=== PATIENT | female | born 1960 | race Caucasian/White ===

== ENCOUNTER → 2024-06-08 15:32 | Outpatient (REF) | payer BC, SELFPAY | LOC: MRI 3T 15:32 | PROVIDERS: ATTENDING PHYSICIAN Family Medicine | DX: Q27.9 Congenital malformation of peripheral vascular system, unspecified (principal) | CPT/HCPCS: 70546; A9585 ==

== ENCOUNTER 2024-09-12 08:19 | Inpatient (IN) | payer BC, SELFPAY ==
[2024-09-12] VITALS (19 sets, daily range): BP systolic 86–105; BP diastolic 46–68; PULSE 83–102; BMI 24.0
[2024-09-12 00:42] LABS: % Basophils 0.7 % (0-2); % Eosinophils 1.4 % (0-6); % Immature Granulocytes 0.5 % (0-0.5); % Lymphocytes 34.4 % (20.5-51.1); % Monocytes 8.4 % (1.7-9.3); % Neutrophils 54.6 % (42.2-75.2); Absolute Eosinophils 0.1 10^3/uL (0-0.7); Absolute Lymphocytes 1.4 10^3/uL (1.2-3.4); Absolute Monocytes 0.4 10^3/uL (0.1-0.6); Absolute Neutrophils 2.3 10^3/uL (1.4-6.5); Hemoglobin 10.4 g/dL (12.0-16.0); Mean Corp Hgb Conc. 34.7 g/dL (33.0-37.0); Mean Corpuscular Hgb 31.5 pg (27.0-31.0); Mean Corpuscular Volume 90.9 fL (81.0-99.0); Mean Platelet Volume 11.6 fL (7.4-10.4); Nucleated Red Blood Cells % 0 %; Platelet Count 184 10^3/uL (130-400); Red Cell Dist. Width 14.1 % (11.5-14.5); White Blood Cell Count 4.2 10^3/uL (4.8-10.8)
[2024-09-12] MEDS: ZOFRAN 4 MG IV ×2 (00:48→14:57)
[2024-09-12] MEDS: NSS 1000 IV ×3 (00:49→05:23)
--- NOTE | 2024-09-12 00:50 | ED.GENMED ---
Addendum entered and electronically signed by Edmund Cummings DO 09/12/24 06:12:
Update, CT report noted reviewed with patient, message sent to hospitalist gynecology and gynecology blood pressure still soft, believe will be prudent to admit her to the hospital for supportive care, facilitated workup ultrasound has been ordered,
Original Note:
History of Present Illness
General
Chief Complaint: Fainting/Passed Out
Source: patient and spouse
Exam Limitations: none
Time Seen by Provider: 09/12/24 00:28
Nursing documentation reviewed up to this point in time: agreed with
History of Present Illness
History of Present Illness:
64-year-old female passed out at home she had a long few days her father was buried today, she had a few glasses of wine daily much, had some THC Gummies, felt like she had to go to the bathroom took some baking soda felt flushed and then passed
out, has some cramping in her abdomen, she feels constipated,
Past History
Past History
ED Past Medical History: None
ED Past Surgical History: Bowel resection (Diverticulitis) and Gynecological (Breast implants and implant removal)
Social History
Tobacco: Smoker
Alcohol: Occasional
Drug: None
Personal:
Living: with family
Employment: Employed
Review of Systems
Review of Systems
All Other Systems: Not applicable
Constitutional: Reports fatigue and sleep disturbance
EENT: Reports no symptoms
Respiratory: Denies cough or trouble breathing
Cardiac: Reports syncope; Denies chest pain
ABD/GI: Reports abdominal pain and nausea
: Reports no symptoms
Musculoskeletal: Reports no symptoms
Neurological: Reports dizzy and weakness
Psychiatric: Reports no symptoms
Phy Exam
Physical Exam
Physical Exam:
Physical Exam
General: 64 female nontoxic
Neck: Not tender
Heart: s1/s2 regular rate and rhythm, no murmur. equal radial pulses.
Lungs: no acute respiratory distress. clear bilaterally
Abdomen: Soft mild epigastric tender
Neuro: alert and oriented. no focal neurological deficits
Skin: no rash
Psychiatric: well kept. interactive and cooperative
Extremities: no edema.
Course
Orders/Labs/Results
Orders:
Orders
09/12/24 00:11
EKG [Electrocardiogram (*1)] Urgent
Reason for Study: Tachycardia
EKG- Treatment ONCE
09/12/24 00:17
Complete Blood Count/With Diff Urgent
09/12/24 00:41
0.9% Sodium Chloride 1000 ml [Nss] 1,000 ml IV BOLUS
Ondansetron Injectable [Zofran] 4 mg IV NOW STA
09/12/24 00:57
Comprehensive Metabolic Panel Urgent
Magnesium Urgent
Comment: ADD ON
Troponin I Urgent
09/12/24 01:25
Add On- LAB Urgent
Tests Added?: magnesium
09/12/24 01:26
Potassium Chloride [KCl] 40 meq PO NOW STA
09/12/24 01:42
Potassium Chloride 10% Elixir [KCl Elixir] 40 meq PO NOW STA
09/12/24 02:22
Magnesium Sulfate 1 G/D5w [Magnesium Sulfate] 1 gm in 100 ml IV NOW
09/12/24 02:24
0.9% Sodium Chloride 1000 ml [Nss] 1,000 ml IV BOLUS
09/12/24 05:06
CT Abd/pelvis W Iv Cont Urgent
Comment:
Reason For Exam: pain bloating
Abnormal Lab Results
09/12/24 09/12/24
00:17 00:57
WBC 4.2 L 10^3/uL
(4.8-10.8)
RBC 3.30 L 10^6/uL
(4.20-5.40)
Hgb 10.4 L g/dL
(12.0-16.0)
Hct 30.0 L %
(37.0-47.0)
MCH 31.5 H pg
(27.0-31.0)
MPV 11.6 H fL
(7.4-10.4)
Potassium 3.2 L mmol/L
(3.5-5.1)
Chloride 115 H mmol/L
(98-107)
Carbon Dioxide 17 L mmol/L
(22-30)
Creatinine 0.5 L mg/dL
(0.6-1.0)
Glucose 103 H mg/dl
(70-99)
Calcium 6.8 L* mg/dl
(8.4-10.2)
Magnesium 1.3 L mg/dl
(1.6-2.3)
Total Bilirubin < 0.1 L mg/dl
(0.2-1.3)
Alkaline Phosphatase 36 L U/L
(38-126)
Total Protein 4.2 L g/dl
(6.3-8.2)
Albumin 2.4 L g/dl
(3.5-5.0)
09/12/24 00:17
09/12/24 00:57
Vital Signs
Initial and Last Documented VS:
Initial Vital Signs
BP
94/68
09/12/24 00:10
Last Documented Vital Signs
Temp Pulse Resp BP Pulse Ox
97.7 F 81 19 90/56 96
09/12/24 00:11 09/12/24 04:00 09/12/24 04:00 09/12/24 04:00 09/12/24 04:00
MDM/Problems Addressed
Differential Diagnosis Includes:
Vasovagal dehydration electrolyte toxic metabolic doubt primary arrhythmia
MDM/Problems Addressed:
Syncope
*Pulse Oximetry
Patient hypoxic: no
*EKG
Interpreted by ED Provider?: Yes
Interpretation: normal
Comparison EKG: no comparison EKG present
Heart Rate: 78
Rate: normal
Rhythm: sinus
QRS Pattern: normal QRS
Ischemia: no ischemia
*Wide Area Network Administrator Interpretation
Rate: normal
Interpretation: normal
Heart Rate: 78
Rhythm: sinus
*Critical Care Note
Total Time (30-74mins, 75-104mins- exclusive of procedures): Not Applicable
Update Note
Update Note:
Update will hydrate, antiemetics serial abdominal exams adult education teacher check electrolytes
Update labs are noted calcium low as is her albumin potassium is low will check her magnesium
2:30 AM blood pressure still soft, will replete her magnesium, continue saline hydration follow closely
5 AM, patient was resting comfortably woke up having some abdominal bloating and pain states she had a bowel movement still having pain--- blood pressure still in the 90s continue hydration check CT scan
ED Attending Note
-
Portions of this chart may have been created with voice recognition software.� Occasional wrong word or��sound alike� substitutions may have occurred due to the inherent limitations of voice recognition software.
Discharge Plan
Departure
Prescriptions:
No Action
eszopiclone [Lunesta] 2 MG tablet
2 mg PO HSPRN PRN (Reason: sleep)
bromelains 500 MG tablet
500 mg PO BID
progesterone micronized 100 MG capsule
100 mg PO .EVERYOTHERNIGHT
cholecalciferol (vitamin D3) 10,000 UNIT tablet
10,000 unit PO DAILY
Bio-Identical Hormones
1 - 2 drp sublingual DAILY
Patient Comments:
E2-1/ E3-2
Digest Max
1 tab PO BID
Ultimate Marion
1 tab PO BID
Patient Comments:
80 billion
Vitamin C:
2,000 - 4,000 mg PO DAILY
hydrocodone-acetaminophen 1 TABLET tablet
1 - 2 tab PO Q4HPRN PRN (Reason: pain) Qty: 40 0RF
Saccharomyces boulardii [Florastor] 250 MG powder in packet
250 mg PO BID Qty: 28 0RF
amoxicillin 500 MG capsule
500 mg PO TID Qty: 29 0RF
Referrals:
Mercedes Joel MD [Family Provider] -
Interventions
Interventions:
*Risk Screen - Suicide Last Done: 09/12/24 00:11
*General Assessment Last Done: 09/12/24 00:11
*Neglect/Abuse Screening Last Done: 09/12/24 00:11
ED- Fall Risk Assessment Last Done: 09/12/24 00:11
*ED COVID-19 Vaccine History Last Done: 09/12/24 00:11
ED- Cardiac Assessment Last Done: 09/12/24 00:15
ED- Neurological Assessment Last Done: 09/12/24 00:15
Discharge Date and Time
Print Language: [place] ISLAND[place]
[2024-09-12 01:24] LABS: ALT (SGPT) 16 U/L (0-35); AST (SGOT) 20 U/L (14-36); Albumin 2.4 g/dl (3.5-5.0); Alkaline Phosphatase 36 U/L (38-126); Blood Urea Nitrogen 8 mg/dl (7-17); Calcium 6.8 mg/dl (8.4-10.2); Carbon Dioxide 17 mmol/L (22-30); Chloride 115 mmol/L (98-107); Estimated Creatinine Clearance 90 ml/min; Glucose 103 mg/dl (70-99); Potassium 3.2 mmol/L (3.5-5.1); Sodium 140 mmol/L (135-145); Total Bilirubin < 0.1 mg/dl (0.2-1.3); Total Protein 4.2 g/dl (6.3-8.2); eGFR > 60.00
[2024-09-12 01:34] LABS: Troponin I < 0.012 ng/ml
[2024-09-12 01:39] LABS: Magnesium 1.3 mg/dl (1.6-2.3)
[2024-09-12] MEDS: KCL ELIXIR 40 MEQ PO (01:47)
[2024-09-12] MEDS: MAGNESIUM SULFATE 100 IV ×2 (02:30→09:59)
[2024-09-12] MEDS: TORADOL 30 MG IV (05:43)
--- NOTE | 2024-09-12 06:10 | ED.GENMED ---
History of Present Illness
General
Chief Complaint: Fainting/Passed Out
Time Seen by Provider: 09/12/24 00:28
Past History
Past History
ED Past Medical History: None
ED Past Surgical History: Bowel resection (Diverticulitis) and Gynecological (Breast implants and implant removal)
Social History
Tobacco: Smoker
Alcohol: Occasional
Drug: None
Personal:
Living: with family
Employment: Employed
Course
Orders/Labs/Results
Orders:
Orders
09/12/24 00:11
EKG [Electrocardiogram (*1)] Urgent
Reason for Study: Tachycardia
EKG- Treatment ONCE
09/12/24 00:17
Complete Blood Count/With Diff Urgent
09/12/24 00:41
0.9% Sodium Chloride 1000 ml [Nss] 1,000 ml IV BOLUS
Ondansetron Injectable [Zofran] 4 mg IV NOW STA
09/12/24 00:57
Comprehensive Metabolic Panel Urgent
Magnesium Urgent
Comment: ADD ON
Troponin I Urgent
09/12/24 01:25
Add On- LAB Urgent
Tests Added?: magnesium
09/12/24 01:26
Potassium Chloride [KCl] 40 meq PO NOW STA
09/12/24 01:42
Potassium Chloride 10% Elixir [KCl Elixir] 40 meq PO NOW STA
09/12/24 02:22
Magnesium Sulfate 1 G/D5w [Magnesium Sulfate] 1 gm in 100 ml IV NOW
09/12/24 02:24
0.9% Sodium Chloride 1000 ml [Nss] 1,000 ml IV BOLUS
09/12/24 05:06
CT Abd/pelvis W Iv Cont Urgent
Comment:
Reason For Exam: pain bloating
09/12/24 05:08
0.9% Sodium Chloride 1000 ml [Nss] 1,000 ml IV BOLUS
09/12/24 05:41
Ketorolac [Toradol] 30 mg IV NOW STA
09/12/24 06:10
Pelvis (Non Obstetric) US [US Pelvis Only (non-obstetric)] Urgent
Comment:
Reason For Exam: mass
Abnormal Lab Results
09/12/24 09/12/24
00:17 00:57
WBC 4.2 L 10^3/uL
(4.8-10.8)
RBC 3.30 L 10^6/uL
(4.20-5.40)
Hgb 10.4 L g/dL
(12.0-16.0)
Hct 30.0 L %
(37.0-47.0)
MCH 31.5 H pg
(27.0-31.0)
MPV 11.6 H fL
(7.4-10.4)
Potassium 3.2 L mmol/L
(3.5-5.1)
Chloride 115 H mmol/L
(98-107)
Carbon Dioxide 17 L mmol/L
(22-30)
Creatinine 0.5 L mg/dL
(0.6-1.0)
Glucose 103 H mg/dl
(70-99)
Calcium 6.8 L* mg/dl
(8.4-10.2)
Magnesium 1.3 L mg/dl
(1.6-2.3)
Total Bilirubin < 0.1 L mg/dl
(0.2-1.3)
Alkaline Phosphatase 36 L U/L
(38-126)
Total Protein 4.2 L g/dl
(6.3-8.2)
Albumin 2.4 L g/dl
(3.5-5.0)
09/12/24 00:17
09/12/24 00:57
Vital Signs
Initial and Last Documented VS:
Initial Vital Signs
BP
94/68
09/12/24 00:10
Last Documented Vital Signs
Temp Pulse Resp BP Pulse Ox
97.7 F 78 15 90/46 98
09/12/24 00:11 09/12/24 06:00 09/12/24 06:00 09/12/24 06:00 09/12/24 06:00
Update Note
Update Note:
Update, CT report noted looks like a gynecologic malignancy pelvic ultrasound has been ordered, but she was sent to hospitalist gynecology and gynecology patient updated
ED Attending Note
-
Portions of this chart may have been created with voice recognition software.� Occasional wrong word or��sound alike� substitutions may have occurred due to the inherent limitations of voice recognition software.
Discharge Plan
Departure
Patient Disposition: Admit
Date of Disposition: 09/12/24
Time of Disposition: 06:11
Admit to: Med/Surg
Presentation/result/management discussed w/ accepting MD/DO: Hospitalist
Patient with high blood pressure during this ER visit?: No
Condition: Fair
Discharge Problem:
Abdominal pain, Syncope
Prescriptions:
No Action
eszopiclone [Lunesta] 2 MG tablet
2 mg PO HSPRN PRN (Reason: sleep)
bromelains 500 MG tablet
500 mg PO BID
progesterone micronized 100 MG capsule
100 mg PO .EVERYOTHERNIGHT
cholecalciferol (vitamin D3) 10,000 UNIT tablet
10,000 unit PO DAILY
Bio-Identical Hormones
1 - 2 drp sublingual DAILY
Patient Comments:
E2-1/ E3-2
Digest Max
1 tab PO BID
Ultimate Marion
1 tab PO BID
Patient Comments:
80 billion
Vitamin C:
2,000 - 4,000 mg PO DAILY
hydrocodone-acetaminophen 1 TABLET tablet
1 - 2 tab PO Q4HPRN PRN (Reason: pain) Qty: 40 0RF
Saccharomyces boulardii [Florastor] 250 MG powder in packet
250 mg PO BID Qty: 28 0RF
amoxicillin 500 MG capsule
500 mg PO TID Qty: 29 0RF
Referrals:
Mercedes Joel MD [Family Provider] -
Interventions
Interventions:
*Risk Screen - Suicide Last Done: 09/12/24 00:11
*General Assessment Last Done: 09/12/24 00:11
*Neglect/Abuse Screening Last Done: 09/12/24 00:11
ED- Fall Risk Assessment Last Done: 09/12/24 00:11
*ED COVID-19 Vaccine History Last Done: 09/12/24 00:11
ED- Cardiac Assessment Last Done: 09/12/24 00:15
ED- Neurological Assessment Last Done: 09/12/24 00:15
Discharge Date and Time
Print Language: KOREAN
--- NOTE | 2024-09-12 06:55 | HPS.HSE ---
Family Physician
-
Family Physician: Mercedes Joel MD
Chief Complaint
-
Abd Pain
History of Present Illness
Patient is a 64y F with PMH significant for diverticular disease who presents to ED complaining of abdominal pain and syncope. Patient states that she attended her father's yesterday. She had some alcohol and took THC later in the
evening. She went to bed last PM and woke with crampy lower abdominal pain. She had the urge to urinate / move her bowels. She stood to go to the bathroom and passed out / fell to the floor. She regained consciousness within moments. She denies
any significant injury / head trauma due to the fall. Patient had a single loose, non-bloody BM and noted some improvement in her abdominal discomfort. However, her pain then increased again and became quite severe. She had nausea but no emesis.
Pos diaphoresis / 'cold sweat'. With worsening pain, patient presented to the ED for further evaluation and treatment.
In the ED, she continues to complain of significant lower abdominal discomfort.
Patient states that she has been feeling fairly well of late. No recent specific or acute issues.
She admits to about 15 lbs weight loss since May without significant effort.
She has been taking bioidentical hormone replacement for some time and has recently been using 'Tamazight teas' from her chiropractor.
No other medications / prescriptions.
Medical History
Past Medical History
Past Medical History: Reports Other
Additional Past Medical History:
Diverticular Disease
GERD
Past Surgical History: Reports Other
Additional Past Surgical History:
Myomectomy (2004)
Hysterectomy / Left Salpingo-oophorectomy (2016) - [place]
Breast Implants / Removal
Sigmoidectomy
Social History
Tobacco: Former Smoker (Quit smoking several years ago.)
Alcohol: Daily (Recent increase in EtOH intake per patient. Daily intake over the past 2 months.)
Drug: Marijuana (THC gummies, etc.)
Family History
Family History: Other (Father: Lung Cancer, CAD Mother: CAD, A-Fib)
Allergies / Home Medications
Allergies reflects when Allergies were last updated in [facility].
Home Medications with original date entered in [facility]
Allergy/Medication List:
Patient states that she takes no Rx medications at present.
If medication reconciliation has not been performed, why?: Medication List N/A
Review of Systems
-
History Source: Patient
A 12 point ROS was completed and negative except as noted: Yes
Constitutional: Reports Fatigue; Denies Fever or Chills
EENT: Denies Sore Throat
Respiratory: Denies Cough or Trouble Breathing
Cardiac: Reports Syncope; Denies Chest Pain or Palpitations
Abdomen/GI: Reports Abdominal Pain, Nausea and Diarrhea; Denies Vomiting, Constipated, Bloody Stools or Black Stools
: Denies Dysuria, Frequency or Flank Pain
Musculoskeletal: Denies Joint Pain or Edema
Neurological: Reports Headache; Denies Dizzy
Psych: Denies Depression or Anxiety
Physical Exam
Vital Signs
Vital Signs
Temp Pulse Resp BP Pulse Ox
97.7 F 78 15 90/46 98
09/12/24 00:11 09/12/24 06:00 09/12/24 06:00 09/12/24 06:00 09/12/24 06:00
Physical Exam
General: Other (pale-appearing 64y F in mild distress due to pain.)
HEENT: Moist mucous membranes and PERRLA
Respiratory: Other (BS decreased at bases - otherwise clear.)
Cardiac: S1/S2 and Regular Rhythm; No Murmur
GI: Other (Abdomen firm inferiorly with pos tenderness and guarding. Bowel sounds are diminished throughout.)
Musculoskeletal: No Clubbing, No Cyanosis and No Edema
Neuro: AO x 3
Laboratory Results
-
09/12/24 00:17
09/12/24 00:57
Laboratory Results
Total Bilirubin < 0.1 mg/dl (0.2-1.3) L 09/12/24 00:57
AST 20 U/L (14-36) 09/12/24 00:57
ALT 16 U/L (0-35) 09/12/24 00:57
Alkaline Phosphatase 36 U/L (38-126) L 09/12/24 00:57
Troponin I < 0.012 ng/ml 09/12/24 00:57
Impression/Plan
-
A/P: Patient is a 64y F with PMH significant for diverticular disease and prior hysterectomy presents with syncopal episode and abdominal pain.
Abdominal Pain
- Admit for further evaluation and treatment.
- New abdominal pain since last PM with pallor and single episode of loose stools.
- No urinary complaints, vaginal discharge / bleeding, etc.
- CT done in the ED suggests uterine mass and R adnexal mass with abdominopelvic ascites.
- Patient is s/p hysterectomy in 2016 - ? primary R ovarian mass with extension.
- Pelvic US pending - follow-up results.
- RUBBER FLAP CUTTER/ Onc, IR and Med Onc consulted
- Supportive care including pain control / symptom management pending tissue diagnosis / further plan.
Syncope
Hypotension
- Suspect vasovagal syncopal event given abdominal symptoms coincident with episode.
- Monitor on telemetry for now. EKG with NSR in the ED.
- IVF support. Follow orthostatic signs, etc.
- Monitor for any new / recurrent symptoms.
- Check Echo.
Normocytic Anemia
- Unclear acuity / source. Prior Hgb = 13 - but this was > 1 year ago.
- Heme test stools, check iron studies, etc.
- Monitor for any evidence of overt blood loss.
- Follow-up repeat abdominal imaging/
- Follow H&H and transfuse if necessary.
Non-Gapped Metabolic Acidosis
Hypocalcemia
Hypokalemia
Hypomagnesemia
- IVF support / electrolyte replacement.
- Replete individual lytes as needed.
- Hypoalbuminemia suggests chronic / ongoing underlying disease state.
- Suspect alcohol use contributing significantly to electrolyte disturbances.
- Follow for improvement in labs / lytes.
- Hold outpatient supplements, herbal teas, etc.
Alcohol Use Disorder
- Recent increase in EtOH intake per patient with her father actively dying on Hospice care.
- MSAS protocol and treat any withdrawal symptoms with BZDs as needed.
- Thiamine / folate replacement.
- Address electrolyte abnormalities as noted above.
DVT Prophylaxis: SCDs
Code Status: Full
[2024-09-12] MEDS: DILAUDID 0.5 MG IV ×4 (07:34→20:40)
[2024-09-12] MEDS: LR 1000 IV ×2 (07:34→19:59)
--- NOTE | 2024-09-12 07:45 | EDRN ---
the pt was received from previous melt house supervisor RN, the pt is resting in stretcher in the lowest position, side rails up x2, call lai within reach, HOB elevated, no s/s of distress, VS WNL, the pt had c/o of severe abdominal pain, Dilaudid IV
administered per providers orders, the pt is on MSAS protocol, LR @ 125cc/hour was hung and is running, the pt denies needing anything at this time, will continue to monitor the pt closely
[2024-09-12 08:32] LABS: CA 125 5.5 U/mL (0-35); CEA 2.48 ng/ml
--- NOTE | 2024-09-12 09:56 | EDRN ---
orders were processed by this RN, pharmacy notified
--- NOTE | 2024-09-12 09:57 | EDRN ---
this RN notified the pt that she is to be NPO and it was explained to the pt as to what NPO means, the pt is agreeable
--- NOTE | 2024-09-12 10:07 | EDRN ---
Magnesium hung and running, labs drawn and sent
[2024-09-12 10:24] LABS: Ionized Calcium 1.08 mMOL/L (1.15-1.33)
[2024-09-12 10:30] LABS: Iron 52 ug/dl (37-170)
[2024-09-12 10:34] LABS: INR 1.22; PT 15.3 Sec (11.4-14.6)
[2024-09-12 10:35] LABS: APTT 23.7 Sec (23.4-35.0)
[2024-09-12 10:39] LABS: Percent Saturation 20 % (20-50); Total Iron Binding Capacity 260 ug/dl (265-497)
[2024-09-12 11:01] LABS: CA 125 < 5.5 U/mL (0-35)
[2024-09-12] MEDS: THIAMINE INJECTION 200 MG IV ×2 (11:47→20:40)
--- NOTE | 2024-09-12 12:22 | PTCARENOTE ---
pt admitted from ED awake and alert. reports abd pain & cramping. LCTA, NSR, +BS x4. cont b&b skin CDI +PP B/L, No edema, CB in reach.
--- NOTE | 2024-09-12 14:18 | W.PN.UPDATE ---
Update Note
Progress Note Update
Planner Intern Onc, IR consulted. Planning for biopsy and paracentesis. Pain control. Cont IVF - syncope 2/2 to abd symptoms. Can obtain CT head in setting of ovarin mass. F/u ECHO. Electrolyte repletion
--- NOTE | 2024-09-12 15:28 | CM ---
Reviewed chart, met with patient to obtain information for assessment. Patient stated that she lives in a condo with her spouse and 12 steps to enter. She was independent with her ADLs, personal care, dressing, and bathing. She drives and can get to
her appointments and do all of her own shopping.
She denied any DME.
She has never had VN services.
Patient has a prescription plan and uses, [facility] in [place].
Patient' PCP is, Mercedes Joel.
Patient stated that she is in a lot of pain but feels that she will be able to return home when stable. She denied needing services for alcohol.
Plan: Case management will continue to follow and assist with discharge planning. Home with spouse.
--- NOTE | 2024-09-12 19:35 | W.CON.GYNONC ---
Consultation
-
Date/Time Consultation Requested: 09/12/2024
Date/Time Consultation Performed: 09/12/2024
Requesting Provider: Edmund Cummings
Performing Provider: Antoni Christian
Reason for Consultation: Pelvic Mass
Chief Complaint
-
abdominal pain
History of Present Illness
64y WF who presents to ED complaining of 1-2 days of lower abdominal pain and syncope. She had attended her father's yesterday after which She had some 2 glasses of wine and and took CBD gummies later in the evening. She went
to bed last PM and woke with crampy lower abdominal pain. She had the urge to urinate and also move her bowels. she did have loose BM She stood to go to the bathroom and passed out and fell to the floor. She denies any significant injury / head
trauma due to the fall. After BM she noted some improvement in her abdominal discomfort. However, her pain then increased again and became quite severe. She had nausea but no emesis. In the midst of these she did experience cold sweat but
denied fever. Throughout today she continues to complain of significant lower abdominal discomfort.
She had a Myomectomy back in [address] Kamryn Patton at [facility]. Due to continued fibroids, and cysts or enlarged tube in LLQ, she has surgery at [place] [address]aeh Garduno, where she has subtotal/supracervical
hysterectomy, LSO, but right ovary was left in situ. she was discharged after that and has seen several providers in [employer] [facility] [facility], She has been taking bioidentical hormone replacement for some time (prepared in [place], mail in compaunding pharmacy) and
has recently been using 'Kyrgyz teas' from her chiropractor.
Due to continued issues with diverticulitis she did undergo laparoscopic sigmoidectomy in 2016. path was benign, acute diverticulitis.
Past Medical History
Diverticular Disease
GERD
Past Surgical History:
Myomectomy (2003)
Hysterectomy / Left Salpingo-oophorectomy (2018) - [place]
Breast Implants / Removal
Sigmoidectomy 2016
Social History
Tobacco: Former Smoker (used in her early 20s and then again in early years after menopause, Quit smoking several years ago.)
Alcohol: Daily
Drug: Marijuana (THC gummies, etc.)
Family History
Father: Lung Cancer, CAD
Sister Breast Ca
Mother: CAD, A-Fib
Medical History
Past Medical History
Past Medical History: Reports GERD
Past Surgical History: Reports Bowel Resection and Gynocological
Social History
Tobacco: Former Smoker
Alcohol: Daily
Drug: Marijuana
Personal:
Living: With Family
Employment: Employed
Allergies
Allergies reflect when allergies were last updated in [facility].
latex Allergy (Verified 09/12/24 00:20)
Unknown
morphine Allergy (Verified 09/12/24 00:20)
Itching
seasonal Allergy (Uncoded 09/12/24 00:20)
itchy eyes,throat, runny nose
Review of Systems
-
History Source: Patient
A 12 point Review of Systems was completed except as noted: Yes
Constitutional: Reports See HPI and Chills
Respiratory: Reports No Symptoms
Cardiac: Reports No Symptoms
Abdomen/GI: Reports Abdominal Pain
: Reports No Symptoms
Musculoskeletal: Reports No Symptoms
Skin: Reports No Symptoms
Neurological: Reports No Symptoms
Endocrine: Reports No Symptoms
Hematologic/Lymphatic: Reports No Symptoms
Psych: Reports No Symptoms
Physical Exam
Vital Signs / I&O
Vitals
Temp Pulse Resp BP Pulse Ox
97.6 F 83 17 103/63 96
09/12/24 15:29 09/12/24 15:29 09/12/24 15:29 09/12/24 15:29 09/12/24 15:29
Physical Exam
General: Well Developed, Well Nourished and No Apparent Distress
HEENT: Normocephalic and PERRLA
Respiratory: Clear and Non Labored Respirations
Cardiac: S1/S2 and Regular Rhythm
GI: Soft, Non Tender, Normal Bowel Sounds and Distended
Genito-urinary: No Costovertebral Tend
External Genitalia: Normal Urethra and Normal Labia
Vagina: Normal Mucosa
Cervix: Normal (cervical stump is present, tender to palpation, has Cervical motion tenderness)
Uterus: Other (Uterus is absent) )
Adnexa: Abnormal
Rectal: Normal Mucosa and Other (able to examine and pass through the prior anastamosis, again tender in posterior cul de sac)
Musculoskeletal: No Clubbing, No Cyanosis and No Edema
Skin: Warm and Dry
Neuro: Awake, Alert and AO x 3
Hematologic/Lymphatic: No Lymphadenopathy and Other (axilla, groin , and cervical/supraclavicular beds examined, )
Psych: Calm and Anxious
Results
-
09/12/24 00:17
09/12/24 00:57
[facility]
[address] [place] [address]
[phone]
Patient Name: HOUSTON OCAMPO
: 1960
Unit Number: [id number]
Age/Sex: 64/F
Patient
Location: ED
Order Provider: Edmund Cummings DO
Exam Service Date: 09/12/24

Diagnostic Imaging Report
SignedOrder #:[id number]
Exams: CT Chest With Iv Contrast
Study: Contrast-enhanced CT of the chest dated 09/12/2024 7:53 AM.
Indication: Ovarian mass.
Comparison: CT coronary calcium score exam 06/23/2021
Technique: After the injection of intravenous nonionic iodinated contrast, axial CT of the chest was performed from the lung apices to the hemidiaphragms. 2-D reformats were obtained. Automatic exposure control radiation dose reduction technology
was utilized.
Findings:
Chest: Mild bilateral lower lobe dependent subsegmental atelectasis. No pulmonary nodules, areas of airspace disease, pleural effusions, pericardial effusions or pathologically enlarged noncalcified lymph nodes in the thorax. No pneumothorax. Small
hiatal hernia.
No thoracic aortic aneurysm.
Visualized portion of the upper abdomen demonstrates ascites.
IMPRESSION:
1. No significant abnormality identified in the chest, as described above. No evidence for intrathoracic metastatic disease.
Electronically signed by Brian Ontiveros, 09/12/2024 8:17 AM
[employer] Dose Report: Up-to-date CT equipment and radiation dose reduction techniques were employed. CTDIvol: 6.5 mGy. DLP: 219 mGy-cm.
Dictated By: Brian Ontiveros MD
Dictated Date & Time: 09/12/2412
~~REPORT ADDENDUM~~
Patient history of hysterectomy and left oophorectomy is provided. 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
Electronically signed by Brian Ontiveros, 09/12/2024 7:06 AM
[employer] Dose Report: Up-to-date CT equipment and radiation dose reduction techniques were employed. CTDIvol: 8.0 mGy. DLP: 461 mGy-cm.
Addendum Dictated by: Brian Ontiveros MD
Addendum Dictated Date & Time: 09/12/24704
Addendum Signed by: Brian Ontiveros MD
Addendum Signed Date & Time: 09/12/24705
CT Abd/pelvis W Iv Cont dated 09/12/2024 5:10 AM.
Indication: pain bloating.
Comparison: CT abdomen/pelvis 07/28/2016.
Technique: After the injection of intravenous nonionic iodinated contrast, axial CT of the abdomen, and pelvis was performed from the top of the hemidiaphragms to the inferior osseous pelvis. 2D reformats were obtained. Automatic exposure control
radiation dose reduction technology was utilized.
Findings:
Visualized portion of the lung bases are unremarkable.
1.1 cm possible hepatic cyst. The spleen, kidneys, adrenal glands and pancreas are within normal limits. Gallbladder is without calcified stones. Tiny duodenal lipoma.
No abdominal aortic aneurysm.
Small to moderate volume diffuse abdominopelvic ascites. No overt peritoneal or omental soft tissue nodularity. No enlarged lymph nodes or free air. Mild wall thickening of jejunal loops in the left upper quadrant. The bowel is without evidence of
obstruction or other adjacent inflammatory changes. Normal appendix likely visualized.
Bladder unremarkable.
Bulky heterogeneous mass-like enlargement of the uterus with confluent extension into the right adnexa (measuring up to 14.3 x 14.8 x 8.8 cm in total), including associated probable mixed solid and cystic right adnexal mass measuring up to 6.3 x 4.5
x 7.2 cm.
Grossly no suspicious osseous lesions are identified.
IMPRESSION:
1. Bulky heterogeneous mass-like enlargement of the uterus with confluent extension into the right adnexa with associated probable mixed solid and cystic mass measuring up to 6.3 x 4.5 x 7.2 cm. Findings likely reflect right ovarian and
uterine/endometrial neoplasm. Probable underlying uterine fibroids as well. Recommend initial further workup with dedicated pelvic ultrasound.
2. Small to moderate volume diffuse abdominopelvic ascites. No overt peritoneal or omental soft tissue nodularity.
3. Possible mild reactive enteritis of jejunal loops in the left upper quadrant.
4. Indeterminate 1.1 cm hypoattenuating hepatic lesion. This could be further evaluated on a nonemergent basis with dedicated MRI abdomen without and with gadolinium contrast.
Up-to-date CT equipment and radiation dose reduction techniques were employed. CTDIvol: 8.0 mGy. DLP: 461 mGy-cm.
Electronically signed by Brian Ontiveros, 09/12/2024 5:51 AM

Impression / Plan
-
I spoke extensively with patient and her Ray who was present, I reviewed the findings and the imaging and outlined my thoughts and plans.
1. Pelvic Mass. I have reviewed the CT images and correlated it with my exam. she has a very tender mass in pelvis with heterogenity on imaging, possibly with areas of hemorrhage in it. I think ascites is causing her lateral abdominal pain, now
being relieved by dilaudid.
It is very unusual that her CEA and CA 125 are normal. This mass is unlikely to be an epithelial tumor of the ovary.
An MRI of pelvis maybe help for further assessment.
It may be a stromal tumor such as granulosa cell tumor (estrogen producing) as often they present with pain and hemoperitoneum. check Inhibin B
There is potential for other diseases such as lymphoma of Ovary which can presents as this.
I am recommending to hold off on immediate surgical therapy. I recommend we try for a CT guided biopsy of the mass and also diagnostic paracenthesis. We will await the results (hopefully can be interpreted in an expedited fashion) before we move
forward with any treatment. If this is malignant process, some neoadjuvant treatment may be needed to decrease the tumor size pre op but it really depends on histology and responsiveness to chemo.
Given her prior surgery (myomectomy, Hysterectomy, sigmoidectomy) her surgery can be very complicated and may require a bowel resection again. she will need formal bowel prep. I recommend we ask colorectal surgery to see patient as their assistance
with case will be needed.
2. Ascites
paracentesis, likely causing her pain
3. enteritis/?peritonitis
likely secondary to mass, and ascites, Surgery or COlorectal surgery consult
4. Anemia
suspect intratumoral bleeding, check anemia labs.
Antoni Christian MD
[employer] [facility] [facility] Oncologist
[facility]
cell: [phone]
[2024-09-13] VITALS (17 sets, daily range): BP systolic 97–116; BP diastolic 49–65
[2024-09-13] MEDS: LR IV (01:51)
[2024-09-13] MEDS: DILAUDID 0.5 MG IV ×3 (04:11→13:23)
[2024-09-13] MEDS: LR 1000 IV (04:11)
[2024-09-13] MEDS: ZOFRAN 4 MG IV ×2 (04:18→20:47)
[2024-09-13 08:13] LABS: Hematocrit 17.3 % (37.0-47.0); Hemoglobin 6.1 g/dL (12.0-16.0); Mean Corp Hgb Conc. 35.1 g/dL (33.0-37.0); Mean Corpuscular Volume 94.1 fL (81.0-99.0); Mean Platelet Volume 11.6 fL (7.4-10.4); Platelet Count 162 10^3/uL (130-400); Red Blood Cell Count 1.85 10^6/uL (4.20-5.40); Red Cell Dist. Width 14.1 % (11.5-14.5); White Blood Cell Count 6.3 10^3/uL (4.8-10.8)
[2024-09-13 08:20] LABS: ALT (SGPT) 18 U/L (0-35); AST (SGOT) 23 U/L (14-36); Albumin 3.2 g/dl (3.5-5.0); Alkaline Phosphatase 54 U/L (38-126); Blood Urea Nitrogen 8 mg/dl (7-17); Calcium 7.9 mg/dl (8.4-10.2); Carbon Dioxide 23 mmol/L (22-30); Chloride 107 mmol/L (98-107); Estimated Creatinine Clearance 90 ml/min; Glucose 107 mg/dl (70-99); LDH 147 U/L (120-246); Magnesium 2.6 mg/dl (1.6-2.3); Potassium 4.2 mmol/L (3.5-5.1); Sodium 137 mmol/L (135-145); Total Bilirubin 0.2 mg/dl (0.2-1.3); Total Protein 5.2 g/dl (6.3-8.2); eGFR > 60.00
[2024-09-13] MEDS: THIAMINE INJECTION 200 MG IV ×2 (08:26→20:47)
[2024-09-13 08:27] LABS: Total Iron Binding Capacity 283 ug/dl (265-497)
[2024-09-13 08:46] LABS: TSH Reflex To Free T4 1.25 uIU/ml (0.47-4.68)
[2024-09-13 08:50] LABS: Ferritin 20.9 ng/ml (11.1-264.0)
[2024-09-13 09:04] LABS: Iron 41 ug/dl (37-170)
[2024-09-13 09:14] LABS: Percent Saturation 14 % (20-50); Total Iron Binding Capacity 283 ug/dl (265-497)
[2024-09-13 09:21] LABS: Folate 16.8 ng/ml (2.76-20); Vitamin B12 846 pg/ml (239-931)
[2024-09-13 09:25] LABS: Hematocrit 16.7 % (37.0-47.0); Hemoglobin 5.8 g/dL (12.0-16.0); Mean Corp Hgb Conc. 34.7 g/dL (33.0-37.0); Mean Corpuscular Hgb 31.7 pg (27.0-31.0); Mean Corpuscular Volume 91.3 fL (81.0-99.0); Mean Platelet Volume 11.7 fL (7.4-10.4); Platelet Count 144 10^3/uL (130-400); Red Blood Cell Count 1.83 10^6/uL (4.20-5.40); Red Cell Dist. Width 14.3 % (11.5-14.5); White Blood Cell Count 6.6 10^3/uL (4.8-10.8)
[2024-09-13 10:24] LABS: Beta HCG Quantitative < 2.39 mIU/ml; FSH 1.1 mIU/ml
--- NOTE | 2024-09-13 11:52 | W.PN.HOSP.TC ---
Today's Communication/Plan
-
Transfused 2 unit PRBCs
Monitor CBC, repeat CBC this evening after transfusion
monitor for change in symptoms/back pain/abdominal pain, or hemodynamic instability
Pelvic Bx, Paracentesis ordered
labs including inhibin b, requested by Manager Applied/Onc
MRI abd/pelvis
CRS consulted f
Manager Applied/Onc on board
Assessment / Plan
Assessment / Plan
Physical Exam
General: Other (pale-appearing 64y F in mild distress due to pain.)
HEENT: Moist mucous membranes and PERRLA
Respiratory: Other (BS decreased at bases - otherwise clear.)
Cardiac: S1/S2 and Regular Rhythm; No Murmur
GI: Other (Abdomen firm inferiorly with pos tenderness and guarding. Bowel sounds are diminished throughout.)
Musculoskeletal: No Clubbing, No Cyanosis and No Edema
Neuro: AO x 3
A/P: Patient is a 64y F with PMH significant for diverticular disease and prior hysterectomy presents with syncopal episode and abdominal pain.
#Abdominal Pain
#Right adnexal mass
#Small to moderate volume diffuse abdominal pelvic ascites
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
-[employer] SUPERVISOR/ONC consulted
-CA-125 wnl - odd for ovarian neoplasm
-Pelvic Bx, Paracentesis ordered
-labs including inhibin b, requested by Manager [employer]/Onc
-MRI pelvis
-CRS consulted for formal bowel prep in patient hx of myomectomy, Hysterectomy, sigmoidectomy - may need bowel resection again
#Acute blood loss anemia
#Possible hemorrhagic cyst
-CT imaging consistent with this
-F/u MRI pelvis
-no acute interventions as per game programmer/onc until Bx, paracentesis
-Trend CBC
-Transfuse to maintain HgB >7
-2u transfused 09/13
-
#Enteritis jejunal loops
-possibly 2/2 to etoh v malignancy
-CRS involved
-no obvious infection, ctm
#1.1 cm hypoattenuating hepatic lesion
-see plan above
-mri abd/pelvis
Syncope
Hypotension
-suspect 2/2 to acute blood loss anemia v vasovagal
- Monitor on telemetry for now. EKG with NSR in the ED.
- stop IVF - in setting of anemia
- Check Echo: EF 55-60%
Non-Gapped Metabolic Acidosis, resolved
Hypocalcemia
Hypokalemia
Hypomagnesemia
- Replete individual lytes as needed.
- Hypoalbuminemia suggests chronic / ongoing underlying disease state.
- Suspect alcohol use contributing significantly to electrolyte disturbances.
- Follow for improvement in labs / lytes.
- Hold outpatient supplements, herbal teas, etc.
- monitor and replete
Alcohol Use Disorder
- Recent increase in EtOH intake per patient with her father actively dying on Hospice care.
- MSAS protocol and treat any withdrawal symptoms with BZDs as needed.
- Thiamine / folate replacement.
- Address electrolyte abnormalities as noted above.
DVT Prophylaxis: SCDs; no chem ppx due to acute blood loss anemia
Code Status: Full
Total time spent on today's encounter was 51 minutes which included time spent in counseling the patient/family regarding diagnosis and treatment plan as listed above, goals of care, and symptom management. Case was discussed with nursing staff,
specialists, and care coordinators/case management. All labs and imaging personally reviewed by me. Remainder the time spent in detailed review of previous records, lab data, imaging, and other medical provider documentation.
Anticipated Discharge: > 48 hours
Subjective/Interval History
-
Date of Service: September 13, 2024
lethargic; drop in hgb today
Objective Data
-
Labs:
Laboratory Results
09/13/24 09/13/24
07:23 08:43
WBC 6.3 6.6
Hgb 6.1 L* D 5.8 L*
Hct 17.3 L* 16.7 L*
Plt Count 162 144
Sodium 137
Potassium 4.2 D
Chloride 107
Carbon Dioxide 23
BUN 8
Creatinine 0.5 L
Glucose 107 H
Calcium 7.9 L
Total Bilirubin 0.2
AST 23
ALT 18
Alkaline Phosphatase 54
Vital Signs:
Vital Signs
Temp Pulse Resp BP Pulse Ox
99.0 F 101 18 116/53 92
09/13/24 11:19 09/13/24 11:19 09/13/24 11:19 09/13/24 11:19 09/13/24 11:19
I&O
09/12/24 09/13/24 09/14/24
06:59 06:59 06:59
Intake Total 480 / 480
Balance 480 / 480
Review of Systems
-
History Source: Patient
All other systems: Not reviewed unless documented
Data Reviewed
-
CT Scan: Image personally visualized and interpreted and Report Reviewed by me
Ultrasound: Image personally visualized and interpreted
Labs: Labs Reviewed by me
[2024-09-13 12:09] LABS: Urine Albumin Negative (Neg - Trace); Urine Bilirubin Negative (Negative); Urine Character Clear (Clear); Urine Color Yellow; Urine Glucose Negative (Negative); Urine Ketone Trace (Negative); Urine Leukocyte Negative (Negative); Urine Nitrite Negative (Negative); Urine Occult Blood Negative (Negative); Urine Urobilinogen Negative (Neg - 1+)
[2024-09-13 12:35] LABS: Amphetamines Negative (Negative); Barbiturates Negative (Negative); Benzodiazepines Negative (Negative); Buprenorphine Negative (Negative); Cocaine Negative (Negative); Marijuana Positive (Negative); Methadone Negative (Negative); Methamphetamines Negative (Negative); Opiates Positive (Negative); Phencyclidine Negative (Negative); Tricyclic Antidepressants Negative (Negative)
--- NOTE | 2024-09-13 12:55 | CON.CRS ---
Consultation
-
Date/Time Consultation Requested: 09/14/2024, 08:00
Date/Time Consultation Performed: 09/14/2024, 11:15
Requesting Provider: Herberth Nicholas MD
Performing Provider: Osmar Juarez MD
Reason for Consultation: abdominal pain
Medical History
-
Chief Complaint: abdominal pain
History of Present Illness:
64-year-old female, with a significant past medical history of sigmoid diverticulitis status post sigmoidectomy by Dr. Osmar Juarez in 2016, complains of abdominal pain for the past several days. Given the severity at home along with syncope, she
came to the ER last night. She attended a for her father yesterday and drank 2 glasses of wine and then used a cannabis gummy. She had to move her bowels and urinate and had extreme lower abdominal cramping pain. After using the bathroom
she had a syncopal episode. She has been having she mostly has constipation since her surgery but has occasional diarrhea. She denies any blood-tinged stool. She is lost 15 pounds in the past 3 months. She is not due for colonoscopy for another
few years. She denies nausea or vomiting. CT of the abdomen and pelvis shows a bulky 17 cm heterogeneous mass in the pelvis and right adnexa consistent with enlarged uterus with suspected 6.5 cm complex predominantly cystic right ovarian mass. We
have been consulted for further surgical opinion given it is abutting the colon.
Past Medical History
Past Medical History: Other (Diverticular Disease, GERD)
Past Surgical History: Other (Myomectomy (2004) Hysterectomy / Left Salpingo-oophorectomy (2016) - [place] [facility] Implants / Removal Sigmoidectomy [address] Juarez)
Social History
Tobacco: Former Smoker
Alcohol: Daily
Drug: Marijuana
Family History
Family History: Reviewed & Not Pertinent
Allergies / Home Medications
Allergy/AdvReac Type Severity Reaction Status Date / Time
latex Allergy Unknown Verified 09/12/24 00:20
morphine Allergy Itching Verified 09/12/24 00:20
seasonal Allergy itchy Uncoded 09/12/24 00:20
eyes,throat,
runny nose
�Medication �Instructions �Recorded �Confirmed �Type
ascorbic acid (vitamin C) 500 mg 500 mg PO DAILY Supplement 08/12/16 09/12/24 History
tablet (Vitamin C)
Dim Supplement 1 tab PO DAILY Supplement 09/12/24 09/12/24 History
[place] Bark 2 tab PO DAILYPRN PRN anxiety 09/12/24 09/12/24 History
cholecalciferol (vitamin D3) 25 25 mcg PO DAILY Supplement 09/12/24 09/12/24 History
mcg (1,000 unit) tablet (Vitamin
D3)
coQ10 (ubiquinol) 100 mg capsule 100 mg PO DAILY Supplement 09/12/24 09/12/24 History
cyanocobalamin (vitamin B-12) 1,000 mcg PO DAILY Supplement 09/12/24 09/12/24 History
1,000 mcg tablet
fexofenadine 60 mg-pseudoephedrine 1 tab PO [id number] PRN allergies 09/12/24 09/12/24 History
ER 120 mg tablet,ext.release,12 hr
(Myah-D 12 Hour)
fluticasone propionate 50 1 spray intranasal BIDPRN PRN 09/12/24 09/12/24 History
mcg/actuation nasal allergies
spray,suspension
magnesium oxide 400 mg PO DAILY Supplement 09/12/24 09/12/24 History
melatonin 5 mg chewable tablet 10 mg PO DAILYPRN PRN sleep 09/12/24 09/12/24 History
therapeutic multivitamin 1 tab PO DAILY Supplement 09/12/24 09/12/24 History
vitamin A 2,400 mcg capsule 2,400 mcg PO DAILY Supplement 09/12/24 09/12/24 History
vitamin K2 40 mcg tablet 40 mcg PO DAILY Supplement 09/12/24 09/12/24 History
Review of Systems
-
History Source: Patient
Constitutional: Weight Loss
Cardiac: Syncope
Abdomen/GI: Abdominal Pain
A 10 point review of systems was completed, and was negative except as per HPI.
Physical Exam
Vital Signs
Temp 99.0 F 09/13/24 11:19
Pulse 101 09/13/24 11:19
Resp Rate 18 09/13/24 11:19
Blood pressure 116/53 09/13/24 11:19
SaO2 92 09/13/24 11:19
09/12/24 09/13/24 09/14/24
06:59 06:59 06:59
Actual Weight 67.3 kg
Body Mass Index (BMI) 0.0
Lab Results / Allergies
09/13/24 07:23
WBC 6.6 10^3/uL (4.8-10.8) 09/13/24 08:43
Hgb 5.8 g/dL (12.0-16.0) L* 09/13/24 08:43
Hct 16.7 % (37.0-47.0) L* 09/13/24 08:43
Plt Count 144 10^3/uL (130-400) 09/13/24 08:43
Abs Immat Gran (auto) 0.0 10^3/uL (0-0.05) 09/12/24 00:17
Neutrophils % 54.6 % (42.2-75.2) 09/12/24 00:17
Allergy/AdvReac Type Severity Reaction Status Date / Time
latex Allergy Unknown Verified 09/12/24 00:20
morphine Allergy Itching Verified 09/12/24 00:20
seasonal Allergy itchy Uncoded 09/12/24 00:20
eyes,throat,
runny nose
Physical Exam
General: Well Developed, Well Nourished and No Apparent Distress
GI: Soft, Tender (right lower quadrant) and Distended (mild)
Skin: Warm and Dry
Neuro: AO x 3
Data Reviewed
-
CT Scan: Image Personally Visualized and interpreted, Report Reviewed by me and Discussed with Patient
Labs: Labs Reviewed by me, Discussed with Physician and Discussed with Patient
Old Records: Reviewed
Assessment / Plan
-
Assessment: 64-year-old female with a past medical history of sigmoid diverticular disease status post sigmoidectomy in 2016, presents with weight loss, abdominal pain, and syncope and found to have a likely right ovarian and uterine/endometrial
neoplasm
Plan:
Dr. Juarez discussed CT findings with patient. We would be available for assistance in OR should Dr. Christian operate. Before any interventions should be done (OR, radiation, etc) patient would benefit from a colonoscopy. Biopsy and paracentesis
planned. Receiving 2 units PRBCs. MRI abdomen/pelvis ordered. Will follow chart for a diagnosis.
[2024-09-13 13:10] LABS: Fentanyl, Urine Negative (Negative)
--- NOTE | 2024-09-13 13:15 | PTCARENOTE ---
type and screen resulted, blood ready. Pt is in MRI at present. coordinating transfer to IMU. pt and spouse aware
[2024-09-13] MEDS: CALCIUM GLUCONATE 100 IV (13:19)
--- NOTE | 2024-09-13 14:05 | W.PN.UPDATE ---
Update Note
Progress Note Update
Interventional Radiology
Dx: Pelvic Mass
We received a request for pelvic mass biopsy and paracentesis. Pt with hgb of 10.4->6.4->5.8. She getting MRI today pelvis. There is concern that the pelvic mass is bleeding causing the drop in Hgb and if we perform para it could cause more
bleeding and hgb to drop further. Will reassess tomorrow.
--- NOTE | 2024-09-13 14:08 | PTCARENOTE ---
pt returned from MRI 1st unit PRBC transfusing, tolerating well.
--- NOTE | 2024-09-13 14:22 | PTCARENOTE ---
pt pulsox dropped to 85 on RA. 2L 02 applied, improved to 89% 91% on 4L via N/C
--- NOTE | 2024-09-13 14:35 | PTCARENOTE ---
contacting provider r/t PO and noted JVD
--- NOTE | 2024-09-13 15:55 | W.PN.GYNONC ---
Today's Communication
-
.
Impression / Plan
-
I spoke extensively with patient and her Ray who was present, I reviewed the findings and the imaging and outlined my thoughts and plans.
1. Pelvic Mass. I have reviewed the CT images and correlated it with my exam. she has a very tender mass in pelvis with heterogenity on imaging, possibly with areas of hemorrhage in it. I think ascites is causing her lateral abdominal pain, now
being relieved by dilaudid.
It is very unusual that her CEA and CA 125 are normal. This mass is unlikely to be an epithelial tumor of the ovary.
An MRI of pelvis maybe help for further assessment.
It may be a stromal tumor such as granulosa cell tumor (estrogen producing) as often they present with pain and hemoperitoneum. check Inhibin B
There is potential for other diseases such as lymphoma of Ovary which can presents as this.
I am recommending to hold off on immediate surgical therapy. I recommend we try for a CT guided biopsy of the mass and also diagnostic paracenthesis. We will await the results (hopefully can be interpreted in an expedited fashion) before we move
forward with any treatment. If this is malignant process, some neoadjuvant treatment may be needed to decrease the tumor size pre op but it really depends on histology and responsiveness to chemo.
Given her prior surgery (myomectomy, Hysterectomy, sigmoidectomy) her surgery can be very complicated and may require a bowel resection again. she will need formal bowel prep. I recommend we ask colorectal surgery to see patient as their assistance
with case will be needed.
2. Ascites
paracentesis, likely causing her pain
3. enteritis/?peritonitis
likely secondary to mass, and ascites, Surgery or COlorectal surgery consult
4. Anemia
suspect intratumoral bleeding, check anemia labs.
Antoni Christian MD
Choirmaster Oncologist
[facility]
cell: [phone]
09/13/24
pelvic mass/ascites- still waiting final imaging results before proceeding with CT guided biopsy and paracenthesis.
Anemia- continue to follow labs - receiving blood transfusion now.
Subjective / Interval History
-
She denies any abdominal pain but is taking the pain medications currently is just feeling very fatigued. She is currently getting a transfusion denies any nausea or diarrhea.
Objective Data
-
Lab Results:
09/13/24 07:23
Physical Exam
Vital Signs / I&O
Vitals
Temp Pulse Resp BP Pulse Ox
98.9 F 97 16 114/62 90
09/13/24 14:19 09/13/24 14:19 09/13/24 14:19 09/13/24 14:19 09/13/24 14:22
I&O
09/11/24 09/12/24 09/13/24 09/14/24
06:59 06:59 06:59 06:59
Intake Total 480 / 480 0 / 0
Balance 480 / 480 0 / 0
Physical Exam
VSS
afebrile
abdomen - soft nondistended no rebound tenderness no masses palpated firmness over previous scar
Respiratory: Non Labored Respirations
Cardiac: Regular Rhythm
Data Reviewed
-
MRI: Other (results still pending)
Lab Data: Discussed with Physician
--- NOTE | 2024-09-13 16:01 | PTCARENOTE ---
portable CXR obtained. pt transferred to IMU rm [id number]
--- NOTE | 2024-09-13 16:37 | PTCARENOTE ---
Received from [facility] - placed on IMU monitors, 1st unit PRBC infusing- assessment documented. Pain rates 05/31 lower abdomen- tolerable for her- will request when 08/01. Other complaint is hunger- previous nausea has subsided.
Currently 1st unit finished. Temp 99.4 d/w DR. Watson will give Tylenol.
[2024-09-13] MEDS: TYLENOL 650 MG PO ×2 (17:02→21:02)
--- NOTE | 2024-09-13 18:45 | PTCARENOTE ---
Wanted to goto bathroom- on side of bed felt alittle dizzy/ pale- BP unchanged - allowed bsc- voided 200ml placed back in bed. Second unit PRBC infusing without difficulty. Diet received. Pain 6/ will request narcotic when PS higher.
[2024-09-13 22:56] LABS: Hematocrit 23.6 % (37.0-47.0); Hemoglobin 8.6 g/dL (12.0-16.0); Mean Corp Hgb Conc. 36.4 g/dL (33.0-37.0); Mean Corpuscular Hgb 32.2 pg (27.0-31.0); Mean Corpuscular Volume 88.4 fL (81.0-99.0); Platelet Count 150 10^3/uL (130-400); Red Blood Cell Count 2.67 10^6/uL (4.20-5.40); Red Cell Dist. Width 14.5 % (11.5-14.5); White Blood Cell Count 7.4 10^3/uL (4.8-10.8)
[2024-09-14] VITALS (21 sets, daily range): BP systolic 100–120; BP diastolic 55–71
[2024-09-14] MEDS: TYLENOL 650 MG PO ×2 (03:37→10:20)
--- NOTE | 2024-09-14 03:53 | PTCARENOTE ---
Second unit of blood completed overnight, no s/s of abnormal reaction. Repeat CBC drawn and sent. 2L NC in place; does not take deep breaths d/t abd pain. NSR on tele. MSAS unremarkable. Pt requesting Tylenol for headache. Reports abd pain is
tolerable and only occurs when moving. Pt declined further pain medications as she believes they are too strong. Pt calls appropriately to use BSC. Denies any dizziness or lightheadedness when OOB. Voiding appropriately, no BM. Reports some nausea;
requested prn zofran. Call lai and tray table within reach.
[2024-09-14 05:40] LABS: Hematocrit 23.5 % (37.0-47.0); Hemoglobin 8.1 g/dL (12.0-16.0); Mean Corp Hgb Conc. 34.5 g/dL (33.0-37.0); Mean Corpuscular Hgb 31.2 pg (27.0-31.0); Mean Corpuscular Volume 90.4 fL (81.0-99.0); Mean Platelet Volume 10.9 fL (7.4-10.4); Platelet Count 149 10^3/uL (130-400); White Blood Cell Count 6.4 10^3/uL (4.8-10.8)
[2024-09-14 05:46] LABS: CA 19-9 11 U/mL (<=35)
[2024-09-14 06:22] LABS: ALT (SGPT) 17 U/L (0-35); AST (SGOT) 29 U/L (14-36); Albumin 3.1 g/dl (3.5-5.0); Alkaline Phosphatase 54 U/L (38-126); Blood Urea Nitrogen 5 mg/dl (7-17); Calcium 8.2 mg/dl (8.4-10.2); Carbon Dioxide 24 mmol/L (22-30); Chloride 106 mmol/L (98-107); Estimated Creatinine Clearance 90 ml/min; Glucose 109 mg/dl (70-99); Magnesium 2.1 mg/dl (1.6-2.3); Phosphorus 2.5 mg/dl (2.5-4.5); Potassium 4.3 mmol/L (3.5-5.1); Sodium 138 mmol/L (135-145); Total Bilirubin 0.8 mg/dl (0.2-1.3); Total Protein 5.3 g/dl (6.3-8.2); eGFR > 60.00
[2024-09-14] MEDS: THIAMINE INJECTION 200 MG IV ×2 (09:26→20:31)
--- NOTE | 2024-09-14 10:57 | PTCARENOTE ---
NPO since MN, voided vaccines solutions specialist- sent to [facility] via monitored stretcher.
--- NOTE | 2024-09-14 12:21 | W.PN.[facility].PR ---
Procedure Note
-
Successful pelvic mass biopsy and diagnostic paracentesis.
[2024-09-14 13:28] LABS: Body Fluid Mononuclear 49.5 %; Body Fluid Polymorphonuclear 50.5 %; Body Fluid WBC 4099 /CUMM
[2024-09-14 13:34] LABS: Body Fluid Albumin 2.1 g/dl; Body Fluid Amylase 34 U/L; Body Fluid Protein 3.8 g/dl
[2024-09-14 13:38] LABS: Body Fluid LDH 1475 U/L
--- NOTE | 2024-09-14 14:00 | W.PN.HOSP.TC ---
Today's Communication/Plan
-
bx and paracentesis today
monitor cbc
Assessment / Plan
Assessment / Plan
Physical Exam
General: Other (pale-appearing 64y F in mild distress due to pain.)
HEENT: Moist mucous membranes and PERRLA
Respiratory: Other (BS decreased at bases - otherwise clear.)
Cardiac: S1/S2 and Regular Rhythm; No Murmur
GI: Other (Abdomen firm inferiorly with pos tenderness and guarding. Bowel sounds are diminished throughout.)
Musculoskeletal: No Clubbing, No Cyanosis and No Edema
Neuro: AO x 3
A/P: Patient is a 64y F with PMH significant for diverticular disease and prior hysterectomy presents with syncopal episode and abdominal pain.
#Abdominal Pain
#Right adnexal mass
#Small to moderate volume diffuse abdominal pelvic ascites
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
-BUREAU CHIEF/ONC consulted
-CA-125 wnl - odd for ovarian neoplasm
-Pelvic Bx, Paracentesis today
-labs including inhibin b, requested by Sales Correspondent/Onc
-MRI pelvis: suggesting the possibility of hemorrhagic component.
-CRS consulted for formal bowel prep in patient hx of myomectomy, Hysterectomy, sigmoidectomy - may need bowel resection again
-Sales Correspondent/Onc - rec holding off on immediate surgical therapy
#Acute blood loss anemia
#Possible hemorrhagic cyst
-CT imaging consistent with this
-F/u MRI pelvis as above; hemorrhagic component
-no acute interventions as per gis engineer/onc until Bx, paracentesis
-Trend CBC
-Transfuse to maintain HgB >7
-2u transfused 09/13
#Enteritis jejunal loops
-possibly 2/2 to etoh v malignancy
-CRS involved
-no obvious infection, ctm
-will need C-Scope prior to any surgeries
#1.1 cm hypoattenuating hepatic lesion
-see plan above
-mri abd/pelvis: 10 x 5 mm hepatic cyst which may represent 2 adjacent/contiguous cysts, or a single cyst with thin septation.
Syncope
Hypotension
-suspect 2/2 to acute blood loss anemia v vasovagal
- Monitor on telemetry for now. EKG with NSR in the ED.
- stop IVF - in setting of anemia
- Check Echo: EF 55-60%
Non-Gapped Metabolic Acidosis, resolved
Hypocalcemia
Hypokalemia
Hypomagnesemia
- Replete individual lytes as needed.
- Hypoalbuminemia suggests chronic / ongoing underlying disease state.
- Suspect alcohol use contributing significantly to electrolyte disturbances.
- Follow for improvement in labs / lytes.
- Hold outpatient supplements, herbal teas, etc.
- monitor and replete
Alcohol Use Disorder
- Recent increase in EtOH intake per patient with her father actively dying on Hospice care.
- MSAS protocol and treat any withdrawal symptoms with BZDs as needed.
- Thiamine / folate replacement.
- Address electrolyte abnormalities as noted above.
DVT Prophylaxis: SCDs; no chem ppx due to acute blood loss anemia
Code Status: Full
Total time spent on today's encounter was 53 minutes which included time spent in counseling the patient/family regarding diagnosis and treatment plan as listed above, goals of care, and symptom management. Case was discussed with nursing staff,
specialists, and care coordinators/case management. All labs and imaging personally reviewed by me. Remainder the time spent in detailed review of previous records, lab data, imaging, and other medical provider documentation.
Anticipated Discharge: 24 - 48 hours
Subjective/Interval History
-
Date of Service: September 14, 2024
No acute events, hemoglobin remained stable posttransfusion
still complaining of diffuse abd tenderness but improved
Objective Data
-
Labs:
Laboratory Results
09/14/24
05:26
WBC 6.4
Hgb 8.1 L
Hct 23.5 L
Plt Count 149
Sodium 138
Potassium 4.3
Chloride 106
Carbon Dioxide 24
BUN 5 L
Creatinine 0.5 L
Glucose 109 H
Calcium 8.2 L
Total Bilirubin 0.8
AST 29
ALT 17
Alkaline Phosphatase 54
Vital Signs:
Vital Signs
Temp Pulse Resp BP Pulse Ox
98.1 F 83 21 120/65 95
09/14/24 07:10 09/14/24 13:00 09/14/24 13:00 09/14/24 11:00 09/14/24 13:00
I&O
09/13/24 09/14/24 09/15/24
06:59 06:59 06:59
Intake Total 480 / 480 500 / 500
Output Total 1900 / 1900 350 / 350
Balance 480 / 480 -1400 / -1400 -350 / -350
Review of Systems
-
History Source: Patient
All other systems: Not reviewed unless documented
Data Reviewed
-
CT Scan: Image personally visualized and interpreted and Report Reviewed by me
Ultrasound: Image personally visualized and interpreted
Labs: Labs Reviewed by me
[2024-09-14 14:42] LABS: Body Fluid Second Tech CMB
--- NOTE | 2024-09-14 16:16 | PTCARENOTE ---
Returned from [facility] at 1315- freq VS obtained- documented. Bandaids on lower abdomen and RLQ remain CDI- no s/s noted to relay to MD as ordered. Ambulated to bathroom +voiding. PO Diet obtained- tolerating. C/o persistant headache unrelieved with
Tylenol- d/w provider and ibuprofen order obtained.
--- NOTE | 2024-09-14 16:39 | CM ---
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 Plan pelvic biopsy, paracentesis today. MSAS 0. Per nursing; assist of 1.
CM continuing to follow.
Plan home.
[2024-09-14] MEDS: MOTRIN 800 MG PO (16:47)
[2024-09-14 18:23] LABS: Hemoglobin 8.5 g/dL (12.0-16.0); Mean Corp Hgb Conc. 35.4 g/dL (33.0-37.0); Mean Corpuscular Hgb 31.3 pg (27.0-31.0); Mean Corpuscular Volume 88.2 fL (81.0-99.0); Mean Platelet Volume 10.7 fL (7.4-10.4); Platelet Count 158 10^3/uL (130-400); Red Blood Cell Count 2.72 10^6/uL (4.20-5.40); Red Cell Dist. Width 14.7 % (11.5-14.5); White Blood Cell Count 6.2 10^3/uL (4.8-10.8)
--- NOTE | 2024-09-14 20:35 | PTCARENOTE ---
Pt received from previous RN at change of shift. Pt AAO. NSR on monitor. VSS. Assessment as documented. Pt remains with headache, provided with ice back, lights dimmed, and door closed. 2x bandaids on lower abdomen & RLQ CDI, none of the ordered
reportable findings were found when sites were assessed by this RN. Pt making needs known.
[2024-09-15] VITALS (17 sets, daily range): BP systolic 108–134; BP diastolic 52–105
[2024-09-15] MEDS: ULTRAM 25 MG PO (03:47)
[2024-09-15 06:00] LABS: Hematocrit 24.7 % (37.0-47.0); Hemoglobin 8.7 g/dL (12.0-16.0); Mean Corp Hgb Conc. 35.2 g/dL (33.0-37.0); Mean Corpuscular Hgb 32.6 pg (27.0-31.0); Mean Corpuscular Volume 92.5 fL (81.0-99.0); Mean Platelet Volume 11.2 fL (7.4-10.4); Platelet Count 171 10^3/uL (130-400); Red Blood Cell Count 2.67 10^6/uL (4.20-5.40); Red Cell Dist. Width 14.3 % (11.5-14.5)
[2024-09-15 06:17] LABS: ALT (SGPT) 19 U/L (0-35); AST (SGOT) 35 U/L (14-36); Albumin 3.4 g/dl (3.5-5.0); Alkaline Phosphatase 58 U/L (38-126); Blood Urea Nitrogen 5 mg/dl (7-17); Calcium 8.8 mg/dl (8.4-10.2); Carbon Dioxide 26 mmol/L (22-30); Chloride 106 mmol/L (98-107); Estimated Creatinine Clearance 90 ml/min; Glucose 114 mg/dl (70-99); Potassium 4.3 mmol/L (3.5-5.1); Sodium 140 mmol/L (135-145); Total Bilirubin 0.7 mg/dl (0.2-1.3); Total Protein 5.7 g/dl (6.3-8.2); eGFR > 60.00
[2024-09-15] MEDS: VITAMIN B1 100 MG PO ×2 (09:26→19:59)
--- NOTE | 2024-09-15 15:10 | W.PN.HOSP.TC ---
Today's Communication/Plan
-
Empiric antibiotics for SBP
Follow-up cultures
Pathology follow-up
Gynecology recommendations
Follow-up CBC
Assessment / Plan
Assessment / Plan
Physical Exam
General: Other (pale-appearing 64y F in mild distress due to pain.)
HEENT: Moist mucous membranes and PERRLA
Respiratory: Other (BS decreased at bases - otherwise clear.)
Cardiac: S1/S2 and Regular Rhythm; No Murmur
GI: Other (Abdomen firm inferiorly with pos tenderness and guarding. - improved after paracentesis Bowel sounds are diminished throughout.)
Musculoskeletal: No Clubbing, No Cyanosis and No Edema
Neuro: AO x 3
A/P: Patient is a 64y F with PMH significant for diverticular disease and prior hysterectomy presents with syncopal episode and abdominal pain.
#Abdominal Pain
#Right adnexal mass
#Small to moderate volume diffuse abdominal pelvic ascites
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
-CLOTH CUTTER/ONC consulted
-CA-125 wnl - odd for ovarian neoplasm
-Pelvic Bx, Paracentesis 09/14 - f/u results
-Empiric Ceftriaxone for SBP until cultures finalized
-labs including inhibin b, requested by Manager Communication/Onc
-MRI pelvis: suggesting the possibility of hemorrhagic component.
-CRS consulted for formal bowel prep in patient hx of myomectomy, Hysterectomy, sigmoidectomy - may need bowel resection again - will need scope prior to any surgery - and will have CRS as backup during surgery if needed
-Manager Communication/Onc - rec holding off on immediate surgical therapy
#Acute blood loss anemia
#Possible hemorrhagic cyst
-CT imaging consistent with this
-F/u MRI pelvis as above; hemorrhagic component
-no acute interventions as per milled lumber grader/onc until Bx, paracentesis
-Trend CBC
-Transfuse to maintain HgB >7
-2u transfused 09/13
-appears to have stabilized, ctm 1 additional day
#Enteritis jejunal loops
-possibly 2/2 to etoh v malignancy
-CRS involved
-no obvious infection, ctm
-will need C-Scope prior to any surgeries
#1.1 cm hypoattenuating hepatic lesion
-see plan above
-mri abd/pelvis: 10 x 5 mm hepatic cyst which may represent 2 adjacent/contiguous cysts, or a single cyst with thin septation.
Syncope
Hypotension
-suspect 2/2 to acute blood loss anemia v vasovagal
- Monitor on telemetry for now. EKG with NSR in the ED.
- stop IVF - in setting of anemia
- Check Echo: EF 55-60%
Non-Gapped Metabolic Acidosis, resolved
Hypocalcemia
Hypokalemia
Hypomagnesemia
- Replete individual lytes as needed.
- Hypoalbuminemia suggests chronic / ongoing underlying disease state.
- Suspect alcohol use contributing significantly to electrolyte disturbances.
- Follow for improvement in labs / lytes.
- Hold outpatient supplements, herbal teas, etc.
- monitor and replete
Alcohol Use Disorder
- Recent increase in EtOH intake per patient with her father actively dying on Hospice care.
- MSAS protocol and treat any withdrawal symptoms with BZDs as needed.
- Thiamine / folate replacement.
- Address electrolyte abnormalities as noted above.
DVT Prophylaxis: SCDs; no chem ppx due to acute blood loss anemia
Code Status: Full
Total time spent on today's encounter was 51 minutes which included time spent in counseling the patient/family regarding diagnosis and treatment plan as listed above, goals of care, and symptom management. Case was discussed with nursing staff,
specialists, and care coordinators/case management. All labs and imaging personally reviewed by me. Remainder the time spent in detailed review of previous records, lab data, imaging, and other medical provider documentation.
Anticipated Discharge: 24 - 48 hours
Subjective/Interval History
-
Date of Service: September 15, 2024
no acute events
Para and bx done yest
Objective Data
-
Labs:
Laboratory Results
09/15/24
05:24
WBC 6.0
Hgb 8.7 L
Hct 24.7 L
Plt Count 171
Sodium 140
Potassium 4.3
Chloride 106
Carbon Dioxide 26
BUN 5 L
Creatinine 0.5 L
Glucose 114 H
Calcium 8.8
Total Bilirubin 0.7
AST 35
ALT 19
Alkaline Phosphatase 58
Vital Signs:
Vital Signs
Temp Pulse Resp BP Pulse Ox
98.3 F 98 11 124/61 98
09/15/24 11:45 09/15/24 14:00 09/15/24 14:00 09/15/24 14:00 09/15/24 14:00
I&O
09/14/24 09/15/24 09/16/24
06:59 06:59 06:59
Intake Total 500 / 500
Output Total 1900 / 1900 350 / 350
Balance -1400 / -1400 -350 / -350
Review of Systems
-
History Source: Patient
All other systems: Not reviewed unless documented
Data Reviewed
-
CT Scan: Image personally visualized and interpreted and Report Reviewed by me
Ultrasound: Image personally visualized and interpreted
Labs: Labs Reviewed by me
--- NOTE | 2024-09-15 15:46 | PTCARENOTE ---
Patient feeling 'feverish' slight chill- Temp 99.4 ST 90s-100s 122/70- d/w Dr. Watson - Start scheduled IV antibiotics.
[2024-09-15] MEDS: STERILE WATER FOR INJECTION 20 ML IV (16:31)
[2024-09-15] MEDS: ROCEPHIN 2000 MG IV (16:42)
--- NOTE | 2024-09-15 17:49 | W.PN.GYNONC ---
Today's Communication
-
N/A
Impression / Plan
-
I spoke extensively with patient
#1 right lower quadrant mass with associated ascites abdominal Pain
CT-guided biopsy of the mass as well as paracentesis was performed, so far preliminary results are consistent with blood clot with rare cells suggestive of mesothelial cells. No obvious malignancy identified
Patient had a low-grade fever,-Empiric Ceftriaxone for SBP until cultures finalized
I am holding off on any surgical intervention and will likely postpone it to an outpatient setting under elective circumstances
It is unclear why this mass or ovary bled spontaneously, there is no obvious history of trauma except when she fell prior to arriving to the hospital but I doubt that is the cause of the bleed
#2Acute blood loss anemia, status 2 units packed red blood cells posttransfusion, hemoglobin is fairly stable in the 8 range
This is likely the cause of her syncopal episode that led her to be brought to the hospital
#3Enteritis jejunal loops
I suspect this is due to hemoperitoneum
#4 1.1 cm hypoattenuating hepatic lesion
10 x 5 mm hepatic cyst which may represent 2 adjacent/contiguous cysts, or a single cyst with thin septation.
#5 DVT Prophylaxis: SCDs; no chem ppx due to acute blood loss anemia
Once the patient is deemed hemodynamically stable it is okay for discharge from my perspective and she will follow-up in the office for eventual surgical plan to explore the abdomen and remove what ever mass is present in the right lower quadrant.
This needs to be coordinated with colorectal surgery and the patient requires a colonoscopy prior to surgery.
Subjective / Interval History
-
Patient was seen and evaluated, she appears to be much more comfortable, reports passing flatus but has not had a bowel movement,
She is appreciative of the care provided by the various members of the team
Objective Data
-
Lab Results:
09/15/24 05:24
09/15/24 05:24
[facility]
[address] [place] [address]
[phone]
Patient Name: HOUSTON OCAMPO
: 1960
Unit Number: [id number]
Age/Sex: 64/F
Patient
Location: [facility]
Order Provider: Antoni Christian MD
Exam Service Date: 09/13/24

Magnetic Resonance Imaging Rpt
SignedOrder #:[id number]; [id number]
Exams: MR Abdomen W/o & W Contrast; MR Pelvis W/o & With Contrast
Technique: Multiplanar multisequence pre- and post-IV contrast MRI examination of the abdomen and pelvis. This includes pelvic MRI axial T1 subtraction images.
INDICATION: History of prior hysterectomy. History of prior left salpingo-oophorectomy. Pelvic mass. Hepatic cyst. Ascites. Pleural effusions.
COMPARISON: CT examination earlier the same day.
FINDINGS:
ABDOMEN:
Liver: Normal in size. In the medial segment the left lobe, there is an ovoid/oblong 10 x 5 mm cyst; this may represent 2 adjacent/contiguous cysts, or a single cyst with thin septation. No other intrahepatic space-occupying lesion.
Gallbladder: Within the gallbladder lumen, there is dependent increased T1, slightly decreased T2 signal intensity, likely representing vicarious excretion of intravenous Omnipaque.
Bile duct: No dilatation.
Pancreas: Unremarkable.
Spleen: Normal in size.
Adrenal glands: No mass.
Kidneys: No obstructive uropathy. Small left renal parapelvic cysts.
Small to moderate sliding hiatal hernia.
No retroperitoneal mass or adenopathy. No aortic aneurysm.
Moderate ascites.
Third spacing.
Incidental note is made of an 11 mm complex right breast cyst.
Limited views lung bases:
Small bilateral pleural effusions, right slightly greater than left, with adjacent compressive atelectasis.
Pelvis:
Large lobular mass measuring 17 cm transverse by 13 cm AP by 10 cm craniocaudal. Nearly isointense with skeletal muscle on T1 and only subtle increased signal intensity on fat-suppressed T2. Along the right lateral superior margin, there is a small
fluid signal intensity/cystic component measuring approximately 2 cm. Relatively hypovascular following intravenous contrast. This appears to represent a single large contiguous mass, though along the right psoas muscle medial margin, there is an
ovoid heterogeneously enhancing mass/component measuring 3.8 cm AP by 2.7 cm transverse by 5.5 cm craniocaudal. This could represent the right ovary, or possibly an exophytic or pedunculated component of the mass. Overall, the mass is otherwise
relatively hypovascular. At the peripheral margin of the mass anteriorly, as well as along the left lateral margin extending into the pelvis, there is a peripheral rind of slightly increased T1 signal intensity, appearing of subtle increased signal
intensity on T2. No enhancement following intravenous contrast. This could represent a more dense/complex solid component, or possibly subacute hemorrhagic component.
Moderate ascites in the pelvis.
No sidewall adenopathy.
There is a small amount of high signal intensity associated with ascites in the posterior right mid abdomen and right lower quadrant, suggesting the possibility of hemorrhagic component.
IMPRESSION:
Large lobular pelvic mass, as described. Relatively hypovascular. Enhancing ovoid structure along the right lateral pelvic sidewall could represent the right ovary, or possibly an exophytic or pedunculated component of the dominant mass.
Moderate ascites in the abdomen and pelvis. There is a small amount of high signal intensity associated with ascites in the posterior right mid abdomen and right lower quadrant, suggesting the possibility of hemorrhagic component.
No sidewall adenopathy. No retroperitoneal adenopathy or mass.
10 x 5 mm hepatic cyst which may represent 2 adjacent/contiguous cysts, or a single cyst with thin septation.
Third spacing.
Small bilateral pleural effusions, right slightly greater than left, with adjacent compressive atelectasis.
Electronically signed by Aldair Pimentel MD, 09/13/2024 4:49 PM
Physical Exam
Vital Signs / I&O
Vitals
Temp Pulse Resp BP Pulse Ox
99.4 F 95 20 122/70 98
09/15/24 15:17 09/15/24 15:00 09/15/24 15:00 09/15/24 15:00 09/15/24 15:00
I&O
09/13/24 09/14/24 09/15/24 09/16/24
06:59 06:59 06:59 06:59
Intake Total 480 / 480 500 / 500
Output Total 1900 / 1900 350 / 350
Balance 480 / 480 -1400 / -1400 -350 / -350
Physical Exam
General: No Apparent Distress
Respiratory: Clear and Non Labored Respirations
Cardiac: S1/S2 and Regular Rhythm
GI: Soft, Non Tender and Normal Bowel Sounds
[2024-09-15] MEDS: GLYCERIN SUPPOSITORY ADULT 1 SUPP RECTAL (19:59)
--- NOTE | 2024-09-15 23:06 | PTCARENOTE ---
Pt received at beginning of shift resting in bed. AAOx3. Minimal discomfort to lower abd 'cramping'. Hypoactive BS throughout. Ambulating to bathroom without bm. Receive glycerin suppository. RLQ and lower abdomen bandaids c/d/i. VSS. Afebrile.
SR/ST on CM. Rest of assessment as documented. Call lai remains within reach. Will continue to monitor.
[2024-09-16] VITALS (9 sets, daily range): BP systolic 112–138; BP diastolic 56–75
[2024-09-16 05:26] LABS: Hematocrit 25.5 % (37.0-47.0); Hemoglobin 9.1 g/dL (12.0-16.0); Mean Corp Hgb Conc. 35.7 g/dL (33.0-37.0); Mean Corpuscular Hgb 31.6 pg (27.0-31.0); Mean Corpuscular Volume 88.5 fL (81.0-99.0); Mean Platelet Volume 10.6 fL (7.4-10.4); Platelet Count 253 10^3/uL (130-400); Red Blood Cell Count 2.88 10^6/uL (4.20-5.40); Red Cell Dist. Width 14.1 % (11.5-14.5); White Blood Cell Count 6.3 10^3/uL (4.8-10.8)
[2024-09-16 05:40] LABS: ALT (SGPT) 22 U/L (0-35); AST (SGOT) 44 U/L (14-36); Albumin 3.3 g/dl (3.5-5.0); Alkaline Phosphatase 66 U/L (38-126); Blood Urea Nitrogen 7 mg/dl (7-17); Carbon Dioxide 24 mmol/L (22-30); Chloride 105 mmol/L (98-107); Estimated Creatinine Clearance 90 ml/min; Glucose 105 mg/dl (70-99); Potassium 4.1 mmol/L (3.5-5.1); Sodium 137 mmol/L (135-145); Total Bilirubin 0.9 mg/dl (0.2-1.3); Total Protein 5.6 g/dl (6.3-8.2); eGFR > 60.00
[2024-09-16] MEDS: VITAMIN B1 100 MG PO ×2 (08:07→21:57)
--- NOTE | 2024-09-16 14:58 | W.PN.HOSP.TC ---
Today's Communication/Plan
-
f/u final ascitic fluid cultures while on empiric abx
PT/OT
f/u path
anticipate dc in 24 hours
Assessment / Plan
Assessment / Plan
Physical Exam
General: Other (pale-appearing 64y F in mild distress due to pain.)
HEENT: Moist mucous membranes and PERRLA
Respiratory: Other (BS decreased at bases - otherwise clear.)
Cardiac: S1/S2 and Regular Rhythm; No Murmur
GI: Other (Abdomen firm inferiorly with pos tenderness and guarding. - improved after paracentesis Bowel sounds are diminished throughout.)
Musculoskeletal: No Clubbing, No Cyanosis and No Edema
Neuro: AO x 3
A/P: Patient is a 64y F with PMH significant for diverticular disease and prior hysterectomy presents with syncopal episode and abdominal pain.
#Abdominal Pain
#Right adnexal mass
#Small to moderate volume diffuse abdominal pelvic ascites
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
-MEAL ATTENDANT/ONC consulted
-CA-125 wnl - odd for ovarian neoplasm
-Pelvic Bx, Paracentesis 09/14 - f/u final result
-Empiric Ceftriaxone for SBP until cultures finalized
-labs including inhibin b, requested by Knitter Wire Mesh/Onc
-MRI pelvis: suggesting the possibility of hemorrhagic component.
-CRS consulted for formal bowel prep in patient hx of myomectomy, Hysterectomy, sigmoidectomy - may need bowel resection again - will need scope prior to any surgery - and will have CRS as backup during surgery if needed
-Knitter Wire Mesh/Onc - rec holding off on immediate surgical therapy
#Acute blood loss anemia
#Possible hemorrhagic cyst
-CT imaging consistent with this
-F/u MRI pelvis as above; hemorrhagic component
-no acute interventions as per pole incisor operator/onc until Bx, paracentesis
-Trend CBC
-Transfuse to maintain HgB >7
-2u transfused 09/13
-appears to have stabilized
#Enteritis jejunal loops
-possibly 2/2 to etoh v malignancy
-CRS involved
-no obvious infection, ctm
-will need C-Scope prior to any surgeries
#1.1 cm hypoattenuating hepatic lesion
-see plan above
-mri abd/pelvis: 10 x 5 mm hepatic cyst which may represent 2 adjacent/contiguous cysts, or a single cyst with thin septation.
Syncope
Hypotension
-suspect 2/2 to acute blood loss anemia v vasovagal
- Monitor on telemetry for now. EKG with NSR in the ED.
- stop IVF - in setting of anemia
- Check Echo: EF 55-60%
pt/ot
Non-Gapped Metabolic Acidosis, resolved
Hypocalcemia
Hypokalemia
Hypomagnesemia
- Replete individual lytes as needed.
- Hypoalbuminemia suggests chronic / ongoing underlying disease state.
- Suspect alcohol use contributing significantly to electrolyte disturbances.
- Follow for improvement in labs / lytes.
- Hold outpatient supplements, herbal teas, etc.
- monitor and replete
Alcohol Use Disorder
- Recent increase in EtOH intake per patient with her father actively dying on Hospice care.
- MSAS protocol and treat any withdrawal symptoms with BZDs as needed.
- Thiamine / folate replacement.
- Address electrolyte abnormalities as noted above.
DVT Prophylaxis: SCDs; no chem ppx due to acute blood loss anemia
Code Status: Full
Total time spent on today's encounter was 53 minutes which included time spent in counseling the patient/family regarding diagnosis and treatment plan as listed above, goals of care, and symptom management. Case was discussed with nursing staff,
specialists, and care coordinators/case management. All labs and imaging personally reviewed by me. Remainder the time spent in detailed review of previous records, lab data, imaging, and other medical provider documentation.
Anticipated Discharge: Within 24 hours
Subjective/Interval History
-
Date of Service: September 16, 2024
Abdominal pain is improved
Objective Data
-
Labs:
Laboratory Results
09/16/24
04:43
WBC 6.3
Hgb 9.1 L
Hct 25.5 L
Plt Count 253 D
Sodium 137
Potassium 4.1
Chloride 105
Carbon Dioxide 24
BUN 7
Creatinine 0.5 L
Glucose 105 H
Calcium 9.0
Total Bilirubin 0.9
AST 44 H
ALT 22
Alkaline Phosphatase 66
Vital Signs:
Vital Signs
Temp Pulse Resp BP Pulse Ox
98.5 F 99 8 115/66 98
09/16/24 07:55 09/16/24 12:00 09/16/24 08:00 09/16/24 10:00 09/16/24 12:00
I&O
09/15/24 09/16/24 09/17/24
06:59 06:59 06:59
Intake Total 1075 / 1075
Output Total 350 / 350
Balance -350 / -350 1075 / 1075
Review of Systems
-
History Source: Patient
All other systems: Not reviewed unless documented
Data Reviewed
-
CT Scan: Image personally visualized and interpreted and Report Reviewed by me
Ultrasound: Image personally visualized and interpreted
Labs: Labs Reviewed by me
[2024-09-16] MEDS: ROCEPHIN 2000 MG IV (17:10)
[2024-09-16] MEDS: STERILE WATER FOR INJECTION 20 ML IV (17:11)
[2024-09-16] MEDS: SENOKOT-S PO (21:57)
[2024-09-17] VITALS (8 sets, daily range): BP systolic 101–129; BP diastolic 55–72; BMI 22.9
[2024-09-17 04:10] LABS: Hematocrit 27.1 % (37.0-47.0); Hemoglobin 9.5 g/dL (12.0-16.0); Mean Corp Hgb Conc. 35.1 g/dL (33.0-37.0); Mean Corpuscular Hgb 31.1 pg (27.0-31.0); Mean Corpuscular Volume 88.9 fL (81.0-99.0); Platelet Count 284 10^3/uL (130-400); Red Blood Cell Count 3.05 10^6/uL (4.20-5.40); Red Cell Dist. Width 14.2 % (11.5-14.5); White Blood Cell Count 6.4 10^3/uL (4.8-10.8)
[2024-09-17 04:37] LABS: ALT (SGPT) 37 U/L (0-35); AST (SGOT) 72 U/L (14-36); Albumin 3.6 g/dl (3.5-5.0); Alkaline Phosphatase 71 U/L (38-126); Blood Urea Nitrogen 11 mg/dl (7-17); Calcium 9.1 mg/dl (8.4-10.2); Carbon Dioxide 23 mmol/L (22-30); Chloride 106 mmol/L (98-107); Estimated Creatinine Clearance 90 ml/min; Glucose 110 mg/dl (70-99); Potassium 4.3 mmol/L (3.5-5.1); Sodium 138 mmol/L (135-145); Total Bilirubin 1.4 mg/dl (0.2-1.3); Total Protein 6.1 g/dl (6.3-8.2); eGFR > 60.00
--- NOTE | 2024-09-17 05:48 | PTCARENOTE ---
Pt stated she had large bm last night and one 2 days ago. Declined HS Colace. Denied any abdominal discomfort overnight. No change from previous assessment. Turns self in bed. Call lai remains within reach. Will continue to monitor.
[2024-09-17] MEDS: SENOKOT-S 1 TABLET PO (08:15)
[2024-09-17] MEDS: VITAMIN B1 100 MG PO (08:15)
[2024-09-17 11:18] LABS: Free Testosterone 1.8 pg/mL (0.6-3.8); Sex Hormone Binding Globulin 109 nmol/L (17-125); Total Testosterone,Female/Chil 25 ng/dL (5-32)
--- NOTE | 2024-09-17 12:56 | W.PN.HOSP.TC ---
Addendum entered and electronically signed by Herberth Sims MD 09/17/24 15:07:
[id number]
Original Note:
Today's Communication/Plan
-
Stop herbal supplementation
Follow-up CBC, CMP trending hemoglobin and LFTs outpatient
Follow-up for pathology and next episode with gynecology/oncology outpatient
Follow-up colorectal surgery for preop management prior to any gynecological intervention
Stop antibiotics, no evidence of SBP at this time
Assessment / Plan
Assessment / Plan
Physical Exam
General: Other (pale-appearing 64y F in mild distress due to pain.)
HEENT: Moist mucous membranes and PERRLA
Respiratory: Other (BS decreased at bases - otherwise clear.)
Cardiac: S1/S2 and Regular Rhythm; No Murmur
GI: Other (Abdomen firm inferiorly with pos tenderness and guarding. - improved after paracentesis Bowel sounds are diminished throughout.)
Musculoskeletal: No Clubbing, No Cyanosis and No Edema
Neuro: AO x 3
A/P: Patient is a 64y F with PMH significant for diverticular disease and prior hysterectomy presents with syncopal episode and abdominal pain.
#Abdominal Pain
#Right adnexal mass
#Small to moderate volume diffuse abdominal pelvic ascites
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
-PRODUCTION TESTER/ONC consulted
-CA-125 wnl - odd for ovarian neoplasm
-Pelvic Bx, Paracentesis 09/14 - f/u final result - thus far non malignant cells
-Ascitic fluid negative cultures - no evidence of SBP; dc antibiotics
-labs including inhibin b, requested by Aquarist/Onc
-MRI pelvis: suggesting the possibility of hemorrhagic component.
-CRS consulted for formal bowel prep in patient hx of myomectomy, Hysterectomy, sigmoidectomy - may need bowel resection again - will need scope prior to any surgery - and will have CRS as backup during surgery if needed
-Aquarist/Onc - rec holding off on immediate surgical therapy
-rec to stop herbal supplemenation
-f/u director of radio services/onc for further next steps in 1-2 weeks with pathology
#Acute blood loss anemia
#Possible hemorrhagic cyst
-CT imaging consistent with this
-F/u MRI pelvis as above; hemorrhagic component
-no acute interventions as per director of radio services/onc until Bx, paracentesis
-Trend CBC
-Transfuse to maintain HgB >7
-2u transfused 09/13
-appears to have stabilized
-F/u CBC outpatient
#Transaminitis
-possibly 2/2 to abx
-f/u lfts outpatient
-no RUQ tenderness
#Enteritis jejunal loops
-possibly 2/2 to hemoperitoneum
-CRS involved
-no obvious infection, ctm
-will need C-Scope prior to any surgeries
#1.1 cm hypoattenuating hepatic lesion
-see plan above
-mri abd/pelvis: 10 x 5 mm hepatic cyst which may represent 2 adjacent/contiguous cysts, or a single cyst with thin septation.
Syncope
Hypotension
-suspect 2/2 to acute blood loss anemia
- Monitor on telemetry for now. EKG with NSR in the ED.
- Check Echo: EF 55-60%
pt/ot
Non-Gapped Metabolic Acidosis, resolved
Hypocalcemia
Hypokalemia
Hypomagnesemia
- Replete individual lytes as needed.
- Hypoalbuminemia suggests chronic / ongoing underlying disease state.
- Suspect alcohol use contributing significantly to electrolyte disturbances.
- Follow for improvement in labs / lytes.
- Hold outpatient supplements, herbal teas, etc.
- monitor and replete
Alcohol Use Disorder
- Recent increase in EtOH intake per patient with her father actively dying on Hospice care.
- MSAS protocol and treat any withdrawal symptoms with BZDs as needed.
- Thiamine / folate replacement.
- Address electrolyte abnormalities as noted above.
DVT Prophylaxis: SCDs; no chem ppx due to acute blood loss anemia
Code Status: Full
More than 30 minutes spent in discharge including
Final examination of the patient
Summarizing hospital stay
Instructions for continuing care to all relevant caregivers
Preparation of discharge records, prescriptions, and referral forms
Total time spent (35 in minutes):
Anticipated Discharge: Today
Subjective/Interval History
-
Date of Service: September 17, 2024
no acute events, abd pain has improved
Objective Data
-
Labs:
Laboratory Results
09/17/24 09/17/24
03:53 03:54
WBC 6.4
Hgb 9.5 L
Hct 27.1 L
Plt Count 284
Sodium 138
Potassium 4.3
Chloride 106
Carbon Dioxide 23
BUN 11
Creatinine 0.5 L
Glucose 110 H
Calcium 9.1
Total Bilirubin 1.4 H
AST 72 H
ALT 37 H
Alkaline Phosphatase 71
Vital Signs:
Vital Signs
Temp Pulse Resp BP Pulse Ox
98.5 F 90 17 118/64 97
09/17/24 07:55 09/17/24 06:00 09/17/24 06:00 09/17/24 06:00 09/17/24 06:00
I&O
09/16/24 09/17/24 09/18/24
06:59 06:59 06:59
Intake Total 1075 / 1075 880 / 880
Balance 1075 / 1075 880 / 880
Review of Systems
-
History Source: Patient
All other systems: Not reviewed unless documented
Data Reviewed
-
CT Scan: Image personally visualized and interpreted and Report Reviewed by me
Ultrasound: Image personally visualized and interpreted
Labs: Labs Reviewed by me
--- NOTE | 2024-09-17 12:56 | CM ---
MD entered order for discharge.
Spoke with pt she said she was ready for discharge.
Her Silas will drive her home.
Offered Vn she declined need.
PLAN Home no needs
--- NOTE | 2024-09-17 13:02 | W.DS.TRANS ---
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
-
Discharge Instructions:
Discharge Diagnosis/Procedures
#Abdominal Pain
#Right adnexal mass
#Small to moderate volume diffuse abdominal
pelvic ascites
Activity No strenuous activity
Blood Work Follow up labs with Dr. [facility]; F/u CBC
(Checking Hemoglobin) and CMP (Checking liver
enzymes) in 3-5 days with pcp
Others Tests as per Rn Clinical Appeals/Onc
Instructions:
Stand-Alone Forms:
Changes to Home Medications: Yes
Discharge Medications:
DC Medications w/original date entered in [facility]
ascorbic acid (vitamin C) 500 mg tablet (Vitamin C) 500 mg PO DAILY Supplement 08/12/16
cholecalciferol (vitamin D3) 25 mcg (1,000 unit) tablet (Vitamin D3) 25 mcg PO DAILY Supplement 09/12/24
cyanocobalamin (vitamin B-12) 1,000 mcg tablet 1,000 mcg PO DAILY Supplement 09/12/24
fexofenadine 60 mg-pseudoephedrine ER 120 mg tablet,ext.release,12 hr (Myah-D 12 Hour) 1 tab PO [id number] PRN allergies 09/12/24
fluticasone propionate 50 mcg/actuation nasal spray,suspension 1 spray intranasal BIDPRN PRN allergies 09/12/24
magnesium oxide 400 mg PO DAILY Supplement 09/12/24
therapeutic multivitamin 1 tab PO DAILY Supplement 09/12/24
acetaminophen 325 mg tablet 650 mg (2 x 325 mg) PO Q4HPRN PRN Mild Pain / Temp > 101 #100 tabs 09/17/24
Home Medication Changes
acetaminophen 325 mg tablet 650 mg (2 x 325 mg) PO Q4HPRN PRN Mild Pain / Temp > 101 #100 tabs 09/17/24
Pending Results: No
[2024-09-17] MEDS: LR 1000 IV (13:23)
== END 2024-09-17 15:45 | disposition home or self-care (01) | DRG 982 ==
LOC: IMU 08:19
PROVIDERS: Emergency Medicine; Radiology Diagnostic Radiology; ADMITTING PHYSICIAN Hospitalist; ATTENDING PHYSICIAN Internal Medicine; CONSULT PHYSICIAN Obstetrics & Gynecology Gynecologic Oncology; EMERGENCY PHYSICIAN Emergency Medicine; FAMILY PHYSICIAN Family Medicine; OTHER PHYSICIAN Surgery
PROC: 30233N1 Transfusion of Nonautologous Red Blood Cells into Peripheral Vein, Percutaneous Approach (ICD-10-PCS; 2024-09-13)
PROC: 0W9G3ZX Drainage of Peritoneal Cavity, Percutaneous Approach, Diagnostic (ICD-10-PCS; 2024-09-14)
PROC: 0UB Female Reproductive System, Excision (ICD-10-PCS; 2024-09-14)
DX: K66.1 Hemoperitoneum (principal); D62 Acute posthemorrhagic anemia; E87.20 Acidosis, unspecified; J98.11 Atelectasis; K52.89 Other specified noninfective gastroenteritis and colitis; J90 Pleural effusion, not elsewhere classified; R18.8 Other ascites; R55 Syncope and collapse; F17.200 Nicotine dependence, unspecified, uncomplicated; K59.00 Constipation, unspecified; R19.7 Diarrhea, unspecified; R61 Generalized hyperhidrosis; R63.4 Abnormal weight loss; F12.90 Cannabis use, unspecified, uncomplicated; K21.9 Gastro-esophageal reflux disease without esophagitis; I95.9 Hypotension, unspecified; E83.51 Hypocalcemia; E87.6 Hypokalemia; E83.42 Hypomagnesemia; E88.09 Other disorders of plasma-protein metabolism, not elsewhere classified; F10.10 Alcohol abuse, uncomplicated; K44.9 Diaphragmatic hernia without obstruction or gangrene; K57.30 Diverticulosis of large intestine without perforation or abscess without bleeding; K76.9 Liver disease, unspecified; R19.09 Other intra-abdominal and pelvic swelling, mass and lump; N83.9 Noninflammatory disorder of ovary, fallopian tube and broad ligament, unspecified; W18.30XA Fall on same level, unspecified, initial encounter; Y93.89 Activity, other specified; Y92.002 Bathroom of unspecified non-institutional (private) residence as the place of occurrence of the external cause; Z79.890 Hormone replacement therapy; Z63.4 Disappearance and death of family member; Z82.49 Family history of ischemic heart disease and other diseases of the circulatory system; Z80.1 Family history of malignant neoplasm of trachea, bronchus and lung; Z80.3 Family history of malignant neoplasm of breast; Z91.040 Latex allergy status; Z88.5 Allergy status to narcotic agent; Z90.710 Acquired absence of both cervix and uterus
CPT/HCPCS: 88305; 10160; 49083; 49180; 70450; 71045; 71260; 72197; 74177; 74183; 76856; 77012; 80053; 80306; 80307; 81003; 82042; 82150; 82248; 82330; 82378; 82607; 82728; 82746; 83001; 83540; 83550; 83615; 83735; 84100; 84157; 84270; 84402; 84403; 84443; 84484; 84702; 85025; 85027; 85610; 85730; 86301; 86304; 86850; 86900; 86901; 86920; 87015; 87070; 87205; 88112; 88333; 88341; 88342; 89051; 93005; 93306; 96361; 96374; 96375; 99285; A9575; P9016; Q9967

== ENCOUNTER 2024-09-18 12:34 | Emergency (ER) | payer BC, SELFPAY ==
[2024-09-18 12:48] VITALS: BP 116/69
[2024-09-18] MEDS: ULTRAM 50 MG PO (14:58)
--- NOTE | 2024-09-18 15:20 | ED.GENMED ---
History of Present Illness
General
Chief Complaint: Abdominal Pain
Source: patient
Exam Limitations: none
Time Seen by Provider: 09/18/24 14:35
Nursing documentation reviewed up to this point in time: agreed with
History of Present Illness
History of Present Illness:
Patient discharged in the hospital yesterday afternoon, presents to emergency department secondary to recurrent abdominal pain associated with nonbloody diarrhea. Patient states that she did experience similar abdominal pain while being
hospitalized, but she was feeling much better when she was discharged yesterday. Denies vomiting. Denies fever or chills. Denies trauma. Denies difficulty with urination. Denies loss of appetite. Abdominal pain described as sharp, diffuse,
without any alleviating or exacerbating factors.
Past History
Past History
ED Past Medical History: None
ED Past Surgical History: Bowel resection (Diverticulitis) and Gynecological (Breast implants and implant removal)
Social History
Tobacco: Smoker
Alcohol: None
Drug: None
Personal:
Living: with family
Employment: Employed
Review of Systems
Review of Systems
Allergies reviewed?: Yes
All Other Systems: ROS reviewed and negative except as documented in HPI and ROS
Constitutional: Reports no symptoms
EENT: Reports no symptoms
Respiratory: Reports no symptoms
Cardiac: Reports no symptoms
ABD/GI: Reports abdominal pain and diarrhea; Denies vomiting
Musculoskeletal: Reports no symptoms
Skin: Reports no symptoms
Neurological: Reports no symptoms
Phy Exam
Physical Exam
Physical Exam:
Physical Exam
General: no apparent distress, not acutely ill. afebrile
Head: nc/at. eomi
Neck: supple. no meningeal signs.
Heart: s1/s2 regular rate and rhythm, no murmur. equal radial pulses.
Lungs: no acute respiratory distress. clear bilaterally
Abdomen: normal bowel sounds. mild diffuse tenderness without rebound/guarding.
Neuro: alert and oriented. no focal neurological deficits
Skin: no rash
Psychiatric: well kept. interactive and cooperative
Extremities: no edema. no calf tenderness.
Course
Orders/Labs/Results
Orders:
Orders
09/18/24 14:41
Tramadol HCl [Ultram] 50 mg PO NOW STA
09/18/24 15:32
09/18/24 15:31
Vital Signs
Initial and Last Documented VS:
Initial Vital Signs
Temp Pulse Resp BP Pulse Ox
97.5 F 118 16 116/69 98
09/18/24 12:48 09/18/24 12:48 09/18/24 12:48 09/18/24 12:48 09/18/24 12:48
Last Documented Vital Signs
Temp Pulse Resp BP Pulse Ox
97.5 F 105 18 115/76 94
09/18/24 12:48 09/18/24 16:14 09/18/24 16:14 09/18/24 16:14 09/18/24 16:14
MDM/Problems Addressed
MDM/Problems Addressed:
Patient evaluated in ED by hospitalist, , who does not feel the patient needs re-admission to the hospital for further workup. Recommends discharge patient home with short course of pain medications, i.e. tramadol, as she already has an
outpatient follow up appts with various specialists. Pt and family agree with recommendation and feel comfortable going home at this time.
*Critical Care Note
Total Time (30-74mins, 75-104mins- exclusive of procedures): Not Applicable
ED Attending Note
-
Portions of this chart may have been created with voice recognition software.� Occasional wrong word or��sound alike� substitutions may have occurred due to the inherent limitations of voice recognition software.
Discharge Plan
Departure
Patient Disposition: Home (Routine Discharge)
Date of Disposition: 09/18/24
Time of Disposition: 16:06
Patient with high blood pressure during this ER visit?: Yes
Discharge Problem:
Abdominal pain
Instructions: Abdominal Pain
Prescriptions:
New
tramadol 50 mg tablet
50 mg PO Q8H PRN (Reason: Pain) Qty: 14 0RF
No Action
ascorbic acid (vitamin C) [Vitamin C] 500 mg Tablet
500 mg PO DAILY
cyanocobalamin (vitamin B-12) 1,000 mcg Tablet
1,000 mcg PO DAILY
therapeutic multivitamin Tablet
1 tab PO DAILY
fexofenadine-pseudoephedrine [Myah-D 12 Hour] 60-120 mg Tablet Extended Release 12 Hr
1 tab PO [id number] PRN (Reason: allergies)
fluticasone propionate 50 mcg/actuation [place],Suspension
1 spray INTRANASAL BIDPRN PRN (Reason: allergies)
cholecalciferol (vitamin D3) [Vitamin D3] 25 mcg (1,000 unit) Tablet
25 mcg PO DAILY
magnesium oxide 400 mg magnesium Tablet
400 mg PO DAILY
acetaminophen 325 mg Tablet
650 mg PO Q4HPRN PRN (Reason: Mild Pain / Temp > 101) Qty: 100 0RF
Referrals:
Mercedes Joel MD [Family Provider] -
Activity Restrictions/Additional Instructions:
As discussed, please follow-up with your primary care physician with any further concerns. Your prescription has been sent electronically to [facility] pharmacy in [place].
Interventions
Interventions:
*Risk Screen - Suicide Last Done: 09/18/24 16:13
*General Assessment Last Done: 09/18/24 16:13
*Neglect/Abuse Screening Last Done: 09/18/24 16:13
*ED COVID-19 Vaccine History Last Done: 09/18/24 16:13
*Nursing Disposition Last Done: 09/18/24 16:15
[facility] Assessment Last Done: 09/18/24 16:13
Discharge Date and Time
Discharge Date/Time: 09/18/24 16:15
Print Language: DUTCH
[2024-09-18 16:14] VITALS: BP 115/76
== END 2024-09-18 16:15 | disposition home or self-care (01) ==
LOC: EMR 12:34
PROVIDERS: EMERGENCY PHYSICIAN Emergency Medicine; FAMILY PHYSICIAN Family Medicine
DX: R10.84 Generalized abdominal pain (principal); R19.7 Diarrhea, unspecified; F17.200 Nicotine dependence, unspecified, uncomplicated; Z87.19 Personal history of other diseases of the digestive system
CPT/HCPCS: 99283

== ENCOUNTER → 2024-10-02 06:26 | Day surgery (SDC) | payer BC, SELFPAY | LOC: GI 06:26 | PROVIDERS: ATTENDING PHYSICIAN Internal Medicine Gastroenterology | DX: D50.0 Iron deficiency anemia secondary to blood loss (chronic) (principal); K63.89 Other specified diseases of intestine; K64.0 First degree hemorrhoids; R19.7 Diarrhea, unspecified; R14.0 Abdominal distension (gaseous); R13.10 Dysphagia, unspecified; R12 Heartburn; K44.9 Diaphragmatic hernia without obstruction or gangrene; K22.2 Esophageal obstruction; D12.3 Benign neoplasm of transverse colon; D12.0 Benign neoplasm of cecum; K63.5 Polyp of colon; K29.50 Unspecified chronic gastritis without bleeding; K20.80 Other esophagitis without bleeding; K31.A0 Gastric intestinal metaplasia, unspecified | CPT/HCPCS: 45385; 45380; 43239; 88305; 88342 ==

== ENCOUNTER → 2024-10-11 14:48 | Outpatient (REF) | payer BC, SELFPAY | LOC: RAD 14:48 | PROVIDERS: ATTENDING PHYSICIAN Obstetrics & Gynecology Gynecologic Oncology | DX: R19.00 Intra-abdominal and pelvic swelling, mass and lump, unspecified site (principal); D64.9 Anemia, unspecified; R97.8 Other abnormal tumor markers; Z12.4 Encounter for screening for malignant neoplasm of cervix | CPT/HCPCS: 74177; Q9967 ==

== ENCOUNTER 2024-10-17 06:00 | Inpatient (IN) | payer BC, SELFPAY ==
[2024-10-11 11:09] LABS: Hematocrit 35.9 % (37.0-47.0); Hemoglobin 11.6 g/dL (12.0-16.0); Mean Corp Hgb Conc. 32.3 g/dL (33.0-37.0); Mean Corpuscular Hgb 30.7 pg (27.0-31.0); Platelet Count 308 10^3/uL (130-400); Red Blood Cell Count 3.78 10^6/uL (4.20-5.40); Red Cell Dist. Width 13.8 % (11.5-14.5); White Blood Cell Count 4.1 10^3/uL (4.8-10.8)
[2024-10-11 11:18] LABS: INR 0.94; PT 13.1 Sec (11.4-14.6)
[2024-10-11 11:23] LABS: APTT 30.1 Sec (23.4-35.0)
[2024-10-11 12:07] LABS: ALT (SGPT) 26 U/L (0-35); AST (SGOT) 32 U/L (14-36); Albumin 4.3 g/dl (3.5-5.0); Alkaline Phosphatase 98 U/L (38-126); Blood Urea Nitrogen 11 mg/dl (7-17); Calcium 9.8 mg/dl (8.4-10.2); Carbon Dioxide 27 mmol/L (22-30); Chloride 102 mmol/L (98-107); Glucose 93 mg/dl (70-99); Potassium 5.1 mmol/L (3.5-5.1); Sodium 139 mmol/L (135-145); Total Bilirubin 0.4 mg/dl (0.2-1.3); Total Protein 6.9 g/dl (6.3-8.2); eGFR > 60.00
[2024-10-11 13:18] VITALS: BMI 21.2
[2024-10-12 14:02] LABS: Glycohemoglobin (HgbA1c) 5.5 % (4.0-5.6)
--- NOTE | 2024-10-15 18:08 | W.CON.GYNONC ---
Chief Complaint
-
Pelvic Mass
History of Present Illness
64�year�old �0�0�1 white female with presented to emergency room at [facility] September 12 with 1 to 2 days of
lower abdominal pain as well as syncope.
She had a CT performed on admission, heterogeneous masslike enhancement was seen almost appearing like a uterus with
extension into the right adnexa that measures 14 x 14 x 8 cm. There was mixed solid and cystic mass 6.3 cm, small to moderate
volume of ascites was present. Patient had a significant drop in her hemoglobin over the first 24 hours during the hospitalization and
was thought to have had hemoperitoneum. She did eventually have biopsy of the mass as well as the fluid in the abdomen both of
which was nondiagnostic and was mostly blood and mesothelial cells. She did have a CT of chest, it did not identify any abnormal
findings in the chest and there was no evidence of intrathoracic metastatic disease.
Patient was eventually discharged from the hospital, she has followed up with colorectal surgery Dr luciano she is also scheduled for
EGD and colonoscopy later today. She had a bowel prepi. Last night.
Prior history significant for myomectomy back in [address] Kamryn Patton at [facility]
Due to continued presence of fibroids and cysts and enlarged tube and left lower quadrant she underwent surgery at [facility] in
[address] Nevaeh Garduno, subtotal supracervical hysterectomy and left salpingo�oophorectomy was performed but the right
ovary was left in situ. Gynecologic care has been provided
By several providers but she has been taking bioidentical hormone replacement for some time, has been also under care of
chiropractors.
Patient did also undergo a laparoscopic sigmoid resection in 2016 due to continued issues with diverticulitis. Pathology was benign,
acute diverticulitis.
Patient did use tobacco in early 20s and again in early years after menopause, has quit several years ago.
She drinks alcohol daily.
She uses marijuana THC Gummies intermittently
Family�history�significant�with�lung�cancer�in�father,�breast�cancer�in�her�sister,�mother�with�coronary�artery�disease�artery�disease and�atrial�fibrillation
Medical History
Allergies
Allergies reflect when allergies were last updated in [facility].
latex Allergy (Verified 10/12/24 10:30)
red bumps and itching
morphine Allergy (Verified 10/12/24 10:30)
Itching
seasonal Allergy (Uncoded 10/12/24 10:30)
itchy eyes,throat, runny nose
Physical Exam
Physical Exam
Pelvic�Examination: External�normal�labia,�urethra,�anus.� Vagina:�Normal�mucosa.� Cervix:�normal�appearance,�no�discharge.� Uterus:�absent Adnexa:�No�pelvic�mass.� RVE:�no�masses�or�nodularity Eyes:�EOMI.�Sclerae�are�anicteric.
Ears,�Nose,�Throat,�and�Mouth:�Normal�oral�mucosa�and�oropharynx. Neck:�No�thyromegaly.�No�cervical�lymphadenopathy. Lungs:�Clear�to�auscultation.�Good�air�movement�bilaterally. Cardiac:�Regular�rate.�Regular�rhythm.�No�murmurs�appreciated.
Right�Breast:�No�masses�or�dimpling.�No�nipple�discharge. No�masses�or�dimpling.�No�nipple�discharge. Abdomen:�Abdomen�is�soft.�Non�tender�to�palpation.�Non�distended. Extremities:�No�edema. Hematologic/Lymphatic:�No�palpable�lymphadenopathy.
Musculoskeletal:�Normal�range�of�motion.�Strength�and�Tone�are�normal. Skin:Non�jaundiced.�No�petechia.�No�purpura. Neurologic:�Speech�is�fluent.�Normal�gait�and�station.�Cranial�nerves�intact.
Results
-
10/11/24 09:56
10/11/24 09:56
Comp. Metabolic Panel (14)�-FinalOrdered by:�Mirella MULLEN
Glucose 84 mg/dL 70-99 [facility]
BUN 10 mg/dL 8-27 [facility]
Creat 0.69 mg/dL 0.57-1.00 [facility]
eGFR 97 mL/min/1.73 >59 [facility]
BUN Creat Ratio 14 12-28 [facility]
Sodium 139 mmol/L 134-144 [facility]
Potassium 4.8 mmol/L 3.5-5.2 [facility]
Chloride 101 mmol/L 96-106 [facility]
CO2 22 mmol/L 20-29 [facility]
Calcium 9.8 mg/dL 8.7-10.3 [facility]
Total Protein 6.8 g/dL 6.0-8.5 [facility]
Albumin 4.0 g/dL 3.9-4.9 [facility]
Globulin 2.8 g/dL 1.5-4.5 [facility]
Total Bili 0.3 mg/dL 0.0-1.2 [facility]
Alk Phos 161High IU/L 44-121 [facility]
AST 22 IU/L 0-40 [facility]
ALT 19 IU/L 0-32 [facility]
Iron and TIBC�-FinalOrdered by:�Mirella MULLEN
Iron Bind.Cap.(TIBC) 244Low ug/dL 250-450 [facility]
UIBC 165 ug/dL 118-369 [facility]
IRON 79 ug/dL 27-139 [facility]
Iron Sat Percent 32 % 15-55 [facility]
PT and PTT�-FinalOrdered by:�Mirella MULLEN
INR 1.1 0.9-1.2 [facility]
���������������Reference�interval�is�for�non-anticoagulated�patients.
��������������������������������������������������������������������.
���������������Suggested�INR�therapeutic�range�for�Vitamin�K
���������������antagonist�therapy:
������������������Standard�Dose�(moderate�intensity
���������������������������������therapeutic�range):�������2.0�-�3.0
������������������Higher�intensity�therapeutic�range�������2.5�-�3.5
ProTime 11.6 sec 9.1-12.0 [facility]
aPTT 29 sec 24-33 [facility]
This�test�has�not�been�validated�for�monitoring�unfractionated�heparin
therapy.�aPTT-based�therapeutic�ranges�for�unfractionated�heparin
therapy�have�not�been�established.�For�general�guidelines�on
Heparin�monitoring,�refer�to�the�[facility]�Directory�of�Services.
CA 125, Serum (Serial)�-FinalOrdered by:�Mirella MULLEN
CA125 145.0High U/mL 0.0-38.1 [facility]
[employer]�Electrochemiluminescence�Immunoassay�(ECLIA)
���������������������������������������������������������������������.
Values�obtained�with�different�assay�methods�or�kits�cannot�be
used�interchangeably.��Results�cannot�be�interpreted�as�absolute
evidence�of�the�presence�or�absence�of�malignant�disease.
PDF . [facility]
Vitamin B12 and Folate�-FinalOrdered by:�Mirella MULLEN
B12 >2000High pg/mL 232-1245 [facility]
Folate (Folic Acid), Serum >20.0 ng/mL >3.0 [facility]
A�serum�folate�concentration�of�less�than�3.1�ng/mL�is
considered�to�represent�clinical�deficiency.
CEA�-FinalOrdered by:�Mirella MULLEN
CEA 2.9 ng/mL 0.0-4.7 [facility]
��������������������������������������������Nonsmokers����������<3.9
��������������������������������������������Smokers�������������<5.6
��������������������������������������������������������������������.
���������������[employer]�Electrochemiluminescence�Immunoassay
���������������(ECLIA)
��������������������������������������������������������������������.
���������������Values�obtained�with�different�assay�methods�or�kits
���������������cannot�be�used�interchangeably.��Results�cannot�be
���������������interpreted�as�absolute�evidence�of�the�presence�or
���������������absence�of�malignant�disease.
FSH�-FinalOrdered by:�Mirella MULLEN
FSH 4.3Low mIU/mL 25.8-134.8 [facility]
������������������������������������Adult�Female�������������Range
�������������������������������������Follicular�phase������3.5�-��12.5
�������������������������������������Ovulation�phase�������4.7�-��21.5
�������������������������������������Luteal�phase����������1.7�-���7.7
�������������������������������������Postmenopausal�������25.8�-�134.8
Inhibin B�-FinalOrdered by:�Mirella MULLEN
Inhibin B 1153.2High pg/mL 0.0-16.9 [facility]
Inhibin�B�performed�by�[employer](TM)�Enzyme�Linked�Immunoassay
methodology.�Values�obtained�with�different�assay�methods�or�kits
cannot�be�used�interchangeably.
Ferritin�-FinalOrdered by:�Mirella MULLEN
Ferritin 947High ng/mL 15-150 [facility]
Diagnostic Imaging Report
SignedOrder #:[id number]
Exams: CT Abd/pel W Iv And Oral Contr
CT Abd/pel W Iv And Oral Contr dated 10/11/2024 5:18 PM.
Indication: Intra-abdominal and pelvic swelling, mass and lump.
Comparison: MRI pelvis 09/13/2024.
Technique: After the injection of intravenous nonionic iodinated contrast, axial CT of the abdomen, and pelvis was performed from the top of the hemidiaphragms to the inferior osseous pelvis. 2D reformats were obtained. Automatic exposure control
radiation dose reduction technology was utilized.
Findings:
Visualized portion of the lung bases are unremarkable.
Tiny simple hepatic cyst. The spleen, kidneys, adrenal glands and pancreas are within normal limits. Gallbladder is without calcified stones.
No abdominal aortic aneurysm.
No enlarged lymph nodes, free fluid, or free air. The bowel is without evidence of obstruction or adjacent inflammatory changes.
Redemonstration of complex solid and cystic pelvic mass measuring approximately 9.8 x 7.9 x 7.2 cm.
Bladder unremarkable.
Grossly no suspicious osseous lesions are identified.
IMPRESSION:
1. Redemonstration of complex solid and cystic pelvic mass measuring approximately 9.8 x 7.9 x 7.2 cm. No significant residual free fluid/hemoperitoneum.
Up-to-date CT equipment and radiation dose reduction techniques were employed. CTDIvol: 6.8 mGy. DLP: 298 mGy-cm.
Electronically signed by Brian Ontiveros, 10/12/2024 8:15 AM
[employer] Dose Report: Up-to-date CT equipment and radiation dose reduction techniques were employed. CTDIvol: 6.8 mGy. DLP: 298 mGy-cm.
Dictated By: Brian Ontiveros MD
Dictated Date & Time: 10/12/24 0804
Signed/Co-Signer By: Brian Ontiveros MD /
Signed/Co-Signer Date & Time: 10/12/24 08
Impression / Plan
-
This patient has fully recovered from recent hospitalization. Her clinical examination certainly shows improvement in the previously
documented hemoperitoneum and ascites. I am not sure whether I can appreciate the mass that was described previously and
certainly is not 14 cm in size. As part of her evaluation today Pap smear of the cervical stump was completed. My concern is that
her tumor marker inhibin B was elevated at 1200 and this raises concern about possibility of an occult adult cell granulosa cell
tumor. I am recommending that we proceed with surgery, this procedure is currently scheduled for next Wednesday. We will start
with a robotic assisted laparoscopic exploration of the abdomen, right salpingo�oophorectomy will be done and the right pelvic mass
will be removed. We may perform resection of the residual cervical stump i.e. trachelectomy, we can use that incision to remove the
specimen. Frozen section will be obtained if there is indication for staging staging procedures will be done to include but not limited
to pelvic and aortic lymph node dissection omentectomy peritoneal biopsies. The patient does understand that because of prior
history of colectomy bowel resection may be necessary and she may need to undergo reanastomosis versus diverting colostomy.
All her questions were answered
Risk of surgery including infection bleeding injury to adjacent organs DVT pulmonary embolism and cardiovascular complications
were discussed and reviewed.
She understands that the procedure may need to be converted to an open laparotomy and we discussed recovery for all of the
various scenarios.
[2024-10-17] VITALS (11 sets, daily range): BP systolic 107–148; BP diastolic 73–92; BMI 21.2
[2024-10-17] MEDS: ENTEREG 12 MG PO (06:14)
[2024-10-17] MEDS: HEPARIN 5000 UNITS SC (06:15)
[2024-10-17] MEDS: CELEBREX 200 MG PO (06:15)
[2024-10-17] MEDS: NEURONTIN 600 MG PO (06:15)
[2024-10-17] MEDS: TYLENOL 1000 MG PO (06:15)
--- NOTE | 2024-10-17 09:56 | W.IMMPOSTOP ---
Addendum entered and electronically signed by Osmar Juarez MD 10/17/24 11:02:
Of note, appendectomy also performed.
Original Note:
Surgical Immed Post Op Note
-
Primary Surgeon: Osiris Juarez MD
Assisting Surgeon: ISRAEL Marcum
Pre-op Diagnosis: ovarian mass with history of sigmoidectomy
Post-op Diagnosis: same
Procedure Performed: 1) robotic lysis of adhesions 2) flexible sigmoidoscopy
Anesthesia Type: general
Specimen / Cultures: none
Estimated Blood Loss: 25 cc (for my part
Complications: none
Operative Findings: pelvic adhesions and ovarian mass
Bustamante/stents/ureteral ICG by urology (Dr. Schrader). To be removed shortly.
--- NOTE | 2024-10-17 11:54 | OR.RPT ---
Operative Report
Operative Report
Date of procedure: October 17, 2024
Preoperative diagnosis: Right ovarian mass suspected to be malignant, elevated CA125 and inhibin B, prior history of sigmoid resection, prior history of supracervical hysterectomy and left salpingo-oophorectomy
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
Procedures:
Robotic assisted laparoscopic tumor cytoreduction including right oophorectomy, excision of cervical stump, infracolic omentectomy, excision of multiple peritoneal surfaces and posterior cul-de-sac mass [id number]
Robotic assisted bilateral pelvic lymphadenectomy, right periaortic lymph node dissection [id number]
Robotic assisted pelvic washings, right subdiaphragmatic washings
Robotic assisted laparoscopic appendectomy, enterolysis, sigmoidoscopy (by Dr Juarez)
TAP block
Cystoscopy with insertion of single-J ureteral stents (Urology)
Surgeon: Antoni Christian MD
Broker In Charge: Tiffanie Omer MD, ISRAEL Palma
Estimated blood loss: 150 cc
Urine output: 150 cc
Complication: None
Specimen: Right ovary, posterior cul-de-sac mass, right and left pelvic peritoneum, bladder implant, small bowel implant, right and left pelvic lymph nodes, right periaortic lymph nodes, omentum, appendix, pelvic washings, right diaphragmatic
washings
Indication for procedure: This patient is brought to the operating room for resection of right pelvic mass and possible staging. She has a prior history of laparoscopic low anterior resection in 2016, as well as open subtotal hysterectomy,
bilateral salpingectomy and left oophorectomy in 2019. Approximately 5 to 6 weeks ago she was admitted to the hospital with pelvic mass hemoperitoneum received blood transfusion sampling of the mass as well as peritoneal fluid revealed blood and
nonmalignant not diagnostic specimens. She has undergone EGD and colonoscopy which has been normal, underwent bowel prep in preparation for surgery today, repeat tumor markers indicate presence of elevated inhibin B and elevated CA125 suspicious
for presence of adult type granulosa cell tumor.
Procedure in detail: This patient was brought to the operating room, she was placed in supine position, general anesthesia was administered she was intubated without any difficulty, appropriate IVs were placed OG tube was placed eyes were taped,
timeout procedure was carried out for all procedures noted above. She was placed in lithotomy position, both arms were wrapped in foam and placed in holders and protected along the patient's side across all joints. Urology team performed
cystoscopy and placement of ureteral stents bilaterally once this was completed the case was turned over to us. She was positioned in dorsal lithotomy, prepped in the lower abdomen perineum and vagina and upper thighs. We prepped the abdomen
separately. She was draped. Bustamante catheter was already in place, speculum was placed in the vagina, anterior lip of the cervix was grasped with single-tooth tenaculum, the cervical os was probed and the cervix sounded to about 3 to 4 cm. I was
able to place a uterine manipulator with 3.5 cm ELI ring around the cervix and vaginal cuff occluder was insufflated. We turned our attention to the abdomen. Veress needle was inserted just below left subcostal margin and pneumoperitoneum with CO2
gas was accomplished to pressure of 15 mmHg. 8 mm Xi robotic port was placed 25 cm cephalad to symphysis pubis and mid epigastrium upon placement of the port laparoscopy was performed bilateral diaphragms, falciform ligament, right and left lobes
of the liver appeared to be within normal limits stomach and omentum are unremarkable there were some evidence of hemosiderin stains on both diaphragms as well as right and left paracolic gutters. There was no evidence of ascites.
Robotic ports were inserted in the right upper quadrant, left upper quadrant as well as right and left lateral abdomen, tap block was performed using ropivacaine admixed with saline injected equally on the right upper and left upper abdominal wall
just between the muscle and peritoneum as well as mid abdominal wall. The patient was placed in 28 degree Trendelenburg, robotic system was docked. Dr Juarez proceeded to perform enterolysis until the loops of small bowel were free, we were able to
identify the sigmoid colon leading up into the posterior cul-de-sac. Washings had been collected from pelvis as well as right subdiaphragmatic space. I then went ahead and sat down and opened the right and left retroperitoneal spaces in the course
of the ureter. Right infundibulopelvic ligament was identified isolated sealed 3 times and divided. We went ahead and elevated the ovary and resected part of the right pelvic peritoneum left around the mass and the mass was then from
adhesions and attachments to the right cul-de-sac anterior cul-de-sac and mid cul-de-sac until it was completely free. There was evidence of probably old blood clot involving left pelvis a portion of this was biopsied and submitted for frozen
section which returned back as fibrin and old blood. The right ovary mass was placed in a bag and left in the abdomen. There was additional material in the posterior cul-de-sac which was peeled off the colon cervical stump as well as left pelvis
and all of that was separately placed as a posterior cul-de-sac mass in a separate bag. We went ahead and opened the peritoneum over the cervical stump and advanced the bladder off the anterior vagina next a circumferential incision was made over
the ELI ring uterine arteries were sealed and divided, the cervical stump was completely excised and submitted through the vagina as a specimen. Right ovarian mass bag as well as posterior cul-de-sac bag was removed through the vagina. The entire
peritoneum involving the right and left pelvis was excised and removed and submitted to pathology. There was an implant either old blood or adhesion on the small bowel as well as on the bladder there was removed and submitted to pathology. We went
ahead and performed a frozen section on the right ovary which revealed presence of neoplasm of the ovary probably consistent with stromal tumor or granulosa cell tumor of the ovary as per pathology. At this point performed examination of
the small bowel from ligament of Treitz down to ileocecal valve and there was no evidence of enterotomy. Next we went ahead and performed infracolic omentectomy the entire omentum from hepatic flexure to the splenic flexure was elevated we used
vessel sealer to seal and ligate a series of omental vessels and these were divided omentum was freed up and brought out through the vagina and submitted to pathology. Next the frozen section had revealed presence of tumor that required further
staging. Bilateral pelvic lymphadenectomy was performed removing the entire lymphatic tissue along the external iliac artery and vein and obturator fossa anterior to the obturator nerve. There was no injury to blood vessels or nerves or ureter.
Specimens were submitted as right and left pelvic lymph nodes we then opened the peritoneum over common iliac vessels as well as lower aorta up to the level of insertion of gonadal vessels into IVC. Precaval lymph nodes and aortocaval lymph nodes
were mobilized and removed and submitted as right periaortic lymph nodes. I did not perform left-sided periaortic lymph nodes as there was no left ovary present and there was no evidence of abnormal imaging on preoperative CT scan. I did not
examine the appendix, the appendix appeared to have some inflammation and adhesion at the base of it these adhesions were freed up mesoappendix was sealed and divided I discussed this with , decision was made to go ahead and perform an
appendectomy, the stapler was introduced through the vagina and fired at the base of the appendix and the cecum 2 additional sutures were placed after the stapler was fired to repair the serosa of the bowel. We went ahead and irrigated the entire
abdomen, there was no evidence of residual disease at this point the vaginal cuff was closed with 0 Vicryl suture ligature in a [id number] fashion at both apices on the right and left side. V-Loc suture was used to close the vaginal cuff
starting from right side going to the left and back to the right side in 2 layers. We then sprayed 8 mL of Tisseel over the beds of the lymphadenectomy vaginal apex right pelvic sidewall and right periaortic spaces. At this point we proceeded to
released the pneumoperitoneum undocked the robotic system and removal robotic ports. There was no need to close any fascia at the level of the ports. The skin incisions were closed with 4-0 Monocryl in a subcuticular fashion Bustamante catheter and
ureteral stents were removed. The vagina was examined and there was no lacerations. Patient was awakened extubated and returned back to recovery room stable awake and extubated condition. Counts of laps instruments and needle was correct x 2. I
was present and scrubbed for entire procedure as dictated above.
Disposition: To PACU, stable awake extubated
[2024-10-17] MEDS: DILAUDID 0.5 MG IV (12:13)
--- NOTE | 2024-10-17 12:21 | PTCARENOTE ---
Addendum Patient reports sensation of having to urinate, provided bed velasquez and time, unsuccessful. No bladder distention noted, bladder scan performed in PACU for 22ML. Patient medicated for discomfort.
[2024-10-17] MEDS: DILAUDID 0.25 MG IV (12:33)
== END 2024-10-17 14:30 | disposition home or self-care (01) | DRG 736 ==
LOC: AMOS 06:00
PROVIDERS: Specialist; ADMITTING PHYSICIAN Surgery; ATTENDING PHYSICIAN Obstetrics & Gynecology Gynecologic Oncology; FAMILY PHYSICIAN Family Medicine
PROC: 0DTJ4ZZ Resection of Appendix, Percutaneous Endoscopic Approach (ICD-10-PCS; 2024-10-17)
PROC: 3E1M48X Irrigation of Peritoneal Cavity using Irrigating Substance, Percutaneous Endoscopic Approach, Diagnostic (ICD-10-PCS; 2024-10-17)
PROC: 0TBB4ZX Excision of Bladder, Percutaneous Endoscopic Approach, Diagnostic (ICD-10-PCS; 2024-10-17)
PROC: 0DJD8ZZ Inspection of Lower Intestinal Tract, Via Natural or Artificial Opening Endoscopic (ICD-10-PCS; 2024-10-17)
PROC: 3E0T33Z Introduction of Anti-inflammatory into Peripheral Nerves and Plexi, Percutaneous Approach (ICD-10-PCS; 2024-10-17)
PROC: 0UTC4ZZ Resection of Cervix, Percutaneous Endoscopic Approach (ICD-10-PCS; 2024-10-17)
PROC: 07BC4ZX Excision of Pelvis Lymphatic, Percutaneous Endoscopic Approach, Diagnostic (ICD-10-PCS; 2024-10-17)
PROC: 0DN84ZZ Release Small Intestine, Percutaneous Endoscopic Approach (ICD-10-PCS; 2024-10-17)
PROC: 0DBW4ZZ Excision of Peritoneum, Percutaneous Endoscopic Approach (ICD-10-PCS; 2024-10-17)
PROC: 07BD4ZX Excision of Aortic Lymphatic, Percutaneous Endoscopic Approach, Diagnostic (ICD-10-PCS; 2024-10-17)
PROC: 0DB84ZX Excision of Small Intestine, Percutaneous Endoscopic Approach, Diagnostic (ICD-10-PCS; 2024-10-17)
PROC: 3E0K8KZ Introduction of Other Diagnostic Substance into Genitourinary Tract, Via Natural or Artificial Opening Endoscopic (ICD-10-PCS; 2024-10-17)
PROC: 8E0W4CZ Robotic Assisted Procedure of Trunk Region, Percutaneous Endoscopic Approach (ICD-10-PCS; 2024-10-17)
PROC: 0T788DZ Dilation of Bilateral Ureters with Intraluminal Device, Via Natural or Artificial Opening Endoscopic (ICD-10-PCS; 2024-10-17)
PROC: 0UT04ZZ Resection of Right Ovary, Percutaneous Endoscopic Approach (ICD-10-PCS; 2024-10-17)
PROC: 3E0T3BZ Introduction of Anesthetic Agent into Peripheral Nerves and Plexi, Percutaneous Approach (ICD-10-PCS; 2024-10-17)
PROC: 0DBU4ZZ Excision of Omentum, Percutaneous Endoscopic Approach (ICD-10-PCS; 2024-10-17)
DX: C56.1 Malignant neoplasm of right ovary (principal); K66.1 Hemoperitoneum; R71.0 Precipitous drop in hematocrit; R18.8 Other ascites; N73.6 Female pelvic peritoneal adhesions (postinfective); N83.9 Noninflammatory disorder of ovary, fallopian tube and broad ligament, unspecified; R55 Syncope and collapse; K57.30 Diverticulosis of large intestine without perforation or abscess without bleeding; Z87.891 Personal history of nicotine dependence; Z79.890 Hormone replacement therapy; Z90.711 Acquired absence of uterus with remaining cervical stump; Z90.721 Acquired absence of ovaries, unilateral; Z90.49 Acquired absence of other specified parts of digestive tract; Z80.1 Family history of malignant neoplasm of trachea, bronchus and lung; Z80.3 Family history of malignant neoplasm of breast; Z82.49 Family history of ischemic heart disease and other diseases of the circulatory system; Z88.5 Allergy status to narcotic agent; Z91.040 Latex allergy status
CPT/HCPCS: 88304; 88305; 88307; 88309; 88332; 36415; 80053; 83036; 85027; 85610; 85730; 86850; 86900; 86901; 88112; 88331; 88342; 88360; 93005; C9250; J1335

== ENCOUNTER → 2025-02-05 10:33 | Outpatient (REF) | payer BC, SELFPAY | LOC: PET 10:33 | PROVIDERS: ATTENDING PHYSICIAN Obstetrics & Gynecology Gynecologic Oncology | DX: C56.1 Malignant neoplasm of right ovary (principal) | CPT/HCPCS: 78815; A9552 ==

== ENCOUNTER → 2025-02-07 16:48 | Outpatient (REF) | payer BC, SELFPAY | LOC: RAD 16:48 | PROVIDERS: ATTENDING PHYSICIAN Family Medicine | DX: R22.0 Localized swelling, mass and lump, head (principal) | CPT/HCPCS: 70488; Q9967 ==

== ENCOUNTER → 2025-05-22 13:06 | Outpatient (REF) | payer BC, SELFPAY | LOC: RAD 13:06 | PROVIDERS: ATTENDING PHYSICIAN Otolaryngology; FAMILY PHYSICIAN Family Medicine | DX: K04.7 Periapical abscess without sinus (principal) | CPT/HCPCS: 70488; Q9967 ==

== ENCOUNTER → 2025-06-06 07:49 | Outpatient (REF) | payer BC, SELFPAY | LOC: PAVMRI 07:49 | PROVIDERS: ATTENDING PHYSICIAN Otolaryngology; FAMILY PHYSICIAN Family Medicine | DX: R22.0 Localized swelling, mass and lump, head (principal) | CPT/HCPCS: 70543; A9575 ==